=== PATIENT | female | born 1930 | race Caucasian/White ===

== ENCOUNTER 2017-10-07 19:33 | Inpatient (IN) | payer OTHER ==
--- NOTE | 2017-10-07 19:42 | PDOC ---
Rapid Medical Evaluation Chief Complaint: Pain, Acute Time Seen by Provider: 10/07/17 19:37 Medical Evaluation: Allergies Allergy/AdvReac Type Severity Reaction Status Date / Time Penicillins Allergy Verified 01/29/13 14:04 10/07/17 19:37 S: c/o abdominal pain since last night. c/o constipated x 2 days. patient took 2 gasx since have been having diarrhea and lower abdominal pain. denies fever/ chills. history of abdominal surgeries. patient reports history of abdominal aortic aneurysm. PMD: Dr. Moser O: patient ox3. + mid and lower abdominal tenderness P; cbc, cmp, mag, UA, UCX, RKG Patient to the ER for further management of care.
[2017-10-07] MEDS ORDERED: SODIUM CHLORIDE 1,000 ML IV SCH (20:00)
[2017-10-07] MEDS ORDERED: ACETAMINOPHEN 1000 MG/100 ML VIAL (NON FORMULARY) IVPB ONE (20:01)
--- NOTE | 2017-10-07 20:03 | PDOC ---
History of Present Illness - History of Present Illness Initial Comments: 10/07/17 21:07 The patient is an 87 year old female with a history of dementia, HTN, Chronic back pain who initially presents for evaluation of acute worsening of the patient's back pain. On presentation to the ED, the patient was conversing normally with EMS and nursing staff. Upon my evaluation of the patient, the patient developed expressive aphasia speaking clearly with inappropriate words unable to identify family and objects intermittently following commands without focal neurological findings. The patient's family reports that the patient has never exhibited symptoms like this in the past and is normally very functional and lives on her own. A code redman was called and the patient was sent over to CT scan. <Felix Andrews - Last Filed: 10/07/17 21:15> <Epi Contreras - Last Filed: 10/07/17 22:43> - General Chief Complaint: Back Pain Stated Complaint: BACK PAIN Time Seen by Provider: 10/07/17 19:37 NIH Stroke Scale - Last Known Well Date/Time & Onset Date Last Known Well: 10/07/17 Time Last Known Well: 19:45 - Initial Evaluation Level of consciousness: Alert Ask patient the month and their age: Both incorrect Ask patient to open & close eyes; make fist and let go: Both incorrect Best gaze (horizontal eye movement): Normal Visual field testing: No visual field loss Facial paresis (Show teeth/raise eyebrows/close eyes tight): Normal symmetrical movement Motor Function: Left Arm: Normal Motor Function: Right Arm: Normal (extends arm 90 (or 45) degrees for 10 seconds without drift Motor Function: Left Leg: Normal (extends leg 30 degrees for 5 seconds without drift) Motor Function: Right Leg: Normal (extends leg 30 degrees for 5 seconds without drift) Limb Ataxia: Untestable (Joint fused or limb amputated), explain: (Pain to the Lower back. Patient unable to follow command) Sensory(Use pinprick test arms,legs,trunk,face/side to side): Normal Best language (Describe picture, name items, read sentences): Severe aphasia Dysarthria (read several words): Mild to moderate slurring of words Extinction and Inattention: No abnormality - Total Score NIH Stroke Scale Score: 7 <Felix Andrews - Last Filed: 10/07/17 21:15> Past History - Past Medical History HTN: Yes Thyroid Disease: Yes - Suicide/Smoking/Psychosocial Hx Smoking Status: No Smoking History: Never smoked Have you smoked in the past 12 months: No Number of Cigarettes Smoked Daily: 0 Information on smoking cessation initiated: No Hx Alcohol Use: No Drug/Substance Use Hx: No Substance Use Type: Alcohol Hx Substance Use Treatment: No <Felix Andrews - Last Filed: 10/07/17 21:15> <Epi Contreras - Last Filed: 10/07/17 22:43> - Past Medical History Allergies/Adverse Reactions: Allergies Allergy/AdvReac Type Severity Reaction Status Date / Time Penicillins Allergy Verified 10/07/17 21:04 Home Medications: Ambulatory Orders Amlodipine Besylate [Norvasc -] 2.5 mg PO DAILY #0 tablet 05/15/12 Aspirin [ASA -] 81 mg PO DAILY #0 tab.chew 05/15/12 Biotin 1 mg PO DAILY #0 tablet 05/15/12 Cholecalciferol (Vitamin D3) [Vitamin D3] 400 unit PO DAILY #0 capsule 05/15/12 Levothyroxine [Synthroid -] 88 mcg PO DAILY@0700 #0 tablet 05/15/12 Multivitamin [Multivitamins] 1 each PO DAILY #0 capsule 05/15/12 Ranitidine [Zantac -] 150 mg PO HS #0 tablet 05/15/12 Review of Systems - Review of Systems Able to Perform ROS?: No (Aphasia) <Felix Andrews - Last Filed: 10/07/17 21:15> *Physical Exam - Vital Signs Last Vital Signs Temp Pulse Resp BP Pulse Ox 98.9 F 64 18 212/98 95 10/07/17 19:51 10/07/17 19:51 10/07/17 19:51 10/07/17 19:51 10/07/17 19:51 - Physical Exam Comments: 10/07/17 21:15 General Appearance: Nourished. In Severe Apparent Distress HEENT: EOMI, SHEFALI. No Pharyngeal Erythema, Tonsillar Exudate, Tonsillar Erythema Neck: No Cervical Lymphadenopathy Respiratory/Chest: Lungs Clear, Normal Breath Sounds. No Crackles, Rales, Rhonchi, Wheezing Cardiovascular: Regular Rhythm, Regular Rate. No Murmur, Gallops, Rubs Gastrointestinal/Abdominal: Normal Bowel Sounds, Soft. No Guarding, Rebound, Tenderness Musculoskeletal: Severe Tenderness to palpation along the lumbar spine. No CVA Tenderness Extremity: Normal Capillary Refill Integumentary: Normal Color, Dry, Warm Neurologic: litigation partner II-XII NML intact, Alert, Expressive Aphasia noted on exam with the patient speaking non-sensecally, Motor Strength 5/5, Moving all four extremities equally. Following commands intermittently. <Felix Andrews - Last Filed: 10/07/17 21:15> - Vital Signs Last Vital Signs Temp Pulse Resp BP Pulse Ox 98.5 F 58 L 17 164/85 99 10/07/17 21:09 10/07/17 21:09 10/07/17 21:09 10/07/17 21:09 10/07/17 21:09 <Epi Contreras - Last Filed: 10/07/17 22:43> Heart Score/ECG Review #1 ECG reviewed & interpreted by me at: 21:25 (Sinus Tachycardia) General ECG Interpretation: Sinus Rhythm, Normal Intervals, No acute ischemic changes <Felix Andrews - Last Filed: 10/07/17 21:15> ED Treatment Course - LABORATORY CBC & Chemistry Diagram: 10/07/17 21:03 10/07/17 20:00 - RADIOLOGY Radiology Studies Ordered: Category Date Time Status HEAD CT (STROKE) [CT] Stat CT Scan 10/07/17 19:59 Ordered <Felix Andrews - Last Filed: 10/07/17 21:15> - LABORATORY CBC & Chemistry Diagram: 10/07/17 21:03 10/07/17 20:00 - ADDITIONAL ORDERS Additional order review: Laboratory Results 10/07/17 10/07/17 10/07/17 22:00 21:06 20:12 PT with INR INR Sodium Potassium Chloride Carbon Dioxide Anion Gap BUN Creatinine Creat Clearance w eGFR Random Glucose Calcium Total Bilirubin AST ALT Alkaline Phosphatase Creatine Kinase 158 Creatine Kinase Index 0.9 CK-MB (CK-2) 1.440 Troponin I 0.02 Total Protein Albumin Triglycerides 132 Cholesterol 189 Total LDL Cholesterol 138 H HDL Cholesterol 39 L Lipase Urine Color Ltyellow Urine Appearance Clear Urine pH 7.0 D Ur Specific [place] 1.008 Urine Protein Negative Urine Glucose (UA) Negative Urine Ketones Negative Urine Blood Negative Urine Nitrite Negative Urine Bilirubin Negative Urine Urobilinogen Negative Ur Leukocyte Esterase Negative Blood Type O POSITIVE Antibody Screen Negative 10/07/17 10/07/17 10/07/17 20:12 20:00 20:00 PT with INR 11.40 INR 1.01 Sodium 141 Potassium 4.4 Chloride 109 H Carbon Dioxide 24 Anion Gap 8 BUN 24 H Creatinine 1.7 H Creat Clearance w eGFR 28.56 Random Glucose 76 Calcium 9.0 Total Bilirubin 0.6 AST 28 ALT 18 Alkaline Phosphatase 82 Creatine Kinase Creatine Kinase Index CK-MB (CK-2) Troponin I 0.02 Total Protein 8.2 Albumin 4.1 Triglycerides Cholesterol Total LDL Cholesterol HDL Cholesterol Lipase 155 Urine Color Urine Appearance Urine pH Ur Specific [place] Urine Protein Urine Glucose (UA) Urine Ketones Urine Blood Urine Nitrite Urine Bilirubin Urine Urobilinogen Ur Leukocyte Esterase Blood Type Antibody Screen 10/07/17 21:03 RBC 4.57 MCV 92.3 MCHC 33.3 RDW 15.5 MPV 9.0 D Neutrophils % 59.3 Lymphocytes % 30.3 D Monocytes % 6.7 Eosinophils % 2.7 Basophils % 1.0 - RADIOLOGY Radiology Studies Ordered: Category Date Time Status CHEST X-RAY PORTABLE* [RAD] Stat Radiology 10/07/17 22:20 Ordered - Medications Given in the ED: ED Medications Discontinued Medications Generic Name Dose Route Start Last Admin Trade Name Freq PRN Reason Stop Dose Admin Acetaminophen 1,000 mg 10/07/17 20:01 10/07/17 20:54 Ofirmev Injection - IVPB 10/07/17 20:02 1,000 mg ONCE ONE Administration <Epi Contreras - Last Filed: 10/07/17 22:43> Medical Decision Making - Critical Care Time Total Critical Care Time (minutes): 90 Critical Care Statement: The care of this patient involved high complexity decision making to prevent further life threatening deterioration of the patient 's condition and/or to evaluate & treat vital organ system(s) failure or risk of failure. - Medical Decision Making 10/07/17 20:10 The patient is an 87 year old female with a history of dementia, HTN, Chronic back pain who initially presents for evaluation of acute worsening of the patient's back pain. Given the patient's acute expressive aphasia on presentation, we will call a code redman and obtain a stat head CT in addition to cbc, cmp, troponin, coags, type and screen, ekg to evaluate further for possible etiologies. We discussed the case with Dr. Ayoub the patient's neurologist who states that he believes that due to the patient not having any localizing neurological findings that the patient's expressive aphasia is related to the patient's dementia and pain and thus does not qualify for tPa at this time. 10/07/17 20:[address] demonstrates an acute large hemorrhagic bleed as read by our radiologist. The patient appears minimally less responsive and is still responding to voice although inappropriately as with prior exam. The patient's daughter, Clari Renteria, who is present is the patient's appointed healthcare proxy and informs us that the patient is a DNR. The patient's healthcare proxy does not believe the patient would want to be on the ventilator and would not like us to intubate the patient. Per the healthcare proxy's wishes, we will not currently intubate the patient. We will continue to treat the patient by raising the head of the bed and placing the patient on a non-rebreather. We will discuss the case with neurosurgery for consultation. 10/07/17 21:26 We discussed the case with Dr. Pablo with neurosurgery who has reviewed the images and does not believe the patient to be a surgical candidate at this time given the location of the patient's hemorrhage and size. He states that the patient's brain atrophy is allowing the brain to compensate for the localized edema and hemorrhage. He recommends medical management at this time and notes that he does not believe surgery would change the patient's outcome. We will medically manage the patient and control her blood pressure with a nicardipine drip in the meantime. We discussed the case with the ICU team who accepted the patient to ICU. We will continue to closely monitor and reassess while here in the ED. <Felix Andrews - Last Filed: 10/07/17 21:15> *DC/Admit/Observation/Transfer <Felix Andrews - Last Filed: 10/07/17 21:15> - Discharge Dispostion Admit: Yes <Epi Contreras - Last Filed: 10/07/17 22:43> Diagnosis at time of Disposition: Intracerebral hemorrhage Qualifiers: Intracerebral hemorrhage etiology: nontraumatic Cerebral hemorrhage location: unspecified cerebral location Laterality: left Qualified Code(s): I61.9 - Nontraumatic intracerebral hemorrhage, unspecified Low back pain Qualifiers: Chronicity: unspecified Back pain laterality: unspecified Sciatica presence: unspecified whether sciatica present Qualified Code(s): M54.5 - Low back pain - Discharge Dispostion Condition at time of disposition: Critical - Referrals Referrals: ON STAFF,NOT [Non Staff, Medical] - - Patient Instructions - Post Discharge Activity
[2017-10-07] MEDS ORDERED: RAPID SEQUENCE INTUBATION KIT NR ONE (20:32)
[2017-10-07 20:48] LABS: INR 1.01 (0.82-1.09); PROTHROMBIN TIME (PATIENT) 11.4 SEC (9.7-13.0)
--- NOTE | 2017-10-07 20:52 | PDOC ---
Attending Attestation - Resident Resident Name: Felix Andrews - ED Attending Attestation I have performed the following: I have examined & evaluated the patient, The case was reviewed & discussed with the resident, I agree w/resident's findings & plan, Exceptions are as noted - Physicial Exam PE: 10/07/17 22:24 Patient seen and evaluated immediately upon arrival. This physical exam is being recorded post admission. Awake and alert, screaming incoherently, follows commands intermittently; patient hypertensive on initial evaluation; Normocephalic, atraumatic PERRLA, EOMI No JVD; no carotid bruits CTA RRR Soft, nondistended, nontender No lower extremity edema bilaterally No midline TLS spine tenderness/deformity Full passive range of motion in all 4 extremities Awake and alert, Moving all extremities symmetrically, no pronation drift; speech is incoherent - Critical Care Time Total Critical Care Time: 55 Critical Care Statement: The care of this patient involved high complexity decision making to prevent further life threatening deterioration of the patient 's condition and/or to evaluate & treat vital organ system(s) failure or risk of failure. - Medical Decision Making 10/07/17 20:47 87-year-old female with history of dementia, chronic back pain was brought in by EMS or back pain and became acutely agitated with expressive aphasia without any other localizing signs. Stat head CT was obtained which showed a 4 x 2.5 x 2.3 cm acute left temporal lobe hemorrhage with associated mild. Hemorrhagic edema and mild contralateral midline displacement. On reassessment, patient is lethargic but easily arousable to verbal stimuli, with incoherent speech, minimal movement of the right lower extremity and no spontaneous movement of the right upper extremity. Patient's daughter who is her healthcare proxy has been informed of the findings. She informs me the patient is DNR and she does not wish the patient to be intubated given her advanced age and dementia. I will discuss the patient's presentation with neurosurgery and then will advise the family of the options available. At this time, patient is placed on supplemental O2. Will control blood pressure with IV antihypertensives. Will reassess. 10/07/17 22:[address] Cueva of neurosurgery. He advises that current presentation is nonsurgical at this time. Medical management is recommended. Will initiate nicardipine drip for blood pressure control. Will admit to ICU for further management. 10/07/17 22:23 Patient is a DNR/DNI. Patient's daughter who is healthcare proxy signed a DNR/ DNR form in the ED. <Epi Contreras - Last Filed: 10/07/17 23:01> - HPI HPI: 10/07/17 22:28 87 year old female with past medical history of dementia, HTN, and Chronic back pain via EMS with back pain. Upon arrival to the ED, the patient's been experiencing difficulty putting words together and speaking incoherently. - Medical Decision Making 10/07/17 22:[address] Ayoub of neurology at 8:04 PM. Case discusses with Dr. Pablo of Neurosurgery at 8:50 PM. Case discussed with Dr. Arce, the PCP of the patient at 9:19 PM Case discussed with Dr. Ayoub of neurology at 11:22 PM 10/07/17 23:39 <Anna Figueroa - Last Filed: 10/07/17 23:40> NIH Stroke Scale - Last Known Well Date/Time & Onset Date Last Known Well: 10/07/17 Time Last Known Well: 07:45 - Initial Evaluation Level of consciousness: Alert Ask patient the month and their age: Both incorrect Ask patient to open & close eyes; make fist and let go: Obeys one correctly Best gaze (horizontal eye movement): Normal Visual field testing: No visual field loss Facial paresis (Show teeth/raise eyebrows/close eyes tight): Normal symmetrical movement Motor Function: Left Arm: Normal Motor Function: Right Arm: Normal (extends arm 90 (or 45) degrees for 10 seconds without drift Motor Function: Left Leg: Normal (extends leg 30 degrees for 5 seconds without drift) Motor Function: Right Leg: Normal (extends leg 30 degrees for 5 seconds without drift) Limb Ataxia: No ataxia Sensory(Use pinprick test arms,legs,trunk,face/side to side): Normal Best language (Describe picture, name items, read sentences): Severe aphasia Dysarthria (read several words): Mild to moderate slurring of words Extinction and Inattention: No abnormality - Total Score NIH Stroke Scale Score: 6 <Epi Contreras - Last Filed: 10/07/17 23:01>
[2017-10-07 21:01] LABS: ALBUMIN 4.1 g/dl (3.4-5.0); ANION GAP 8 (8-16); BLOOD UREA NITROGEN 24 mg/dL (7-18); CHLORIDE 109 mmol/L (98-107); CO2 24 mmol/L (21-32); CREATININE 1.7 mg/dL (0.55-1.02); GLUCOSE,RANDOM 76 mg/dL (74-106); LIPASE 155 U/L (73-393); POTASSIUM 4.4 mmol/L (3.5-5.1); SGOT/AST 28 U/L (15-37); SGPT/ALT 18 U/L (12-78); SODIUM 141 mmol/L (136-145)
[2017-10-07 21:03] LABS: ALK PHOS 82 U/L (45-117); BILIRUBIN,TOTAL 0.6 mg/dL (0.2-1.0); TOT PROT 8.2 g/dl (6.4-8.2)
[2017-10-07] MEDS ORDERED: NICARDIPINE 25 MG in DEXTROSE 5%-WATER - 240 ML IVPB SCH (21:15)
[2017-10-07 21:16] LABS: EOS % 2.7 % (0-4.5); HEMATOCRIT 42.2 % (32.4-45.2); HEMOGLOBIN 14.1 GM/dL (10.7-15.3); LYMPH % 30.3 % (8-40); MCH 30.8 pg (25.7-33.7); MCHC 33.3 g/dl (32.0-36.0); MEAN CELL VOLUME 92.3 fl (80-96); MONO % 6.7 % (3.8-10.2); NEUT % 59.3 % (42.8-82.8); PLATELET COUNT 167 K/MM3 (134-434); RBC 4.57 M/mm3 (3.60-5.2); RDW 15.5 % (11.6-15.6); WHITE BLOOD COUNT 4.9 K/mm3 (4.0-10.0)
[2017-10-07 21:20] LABS: URINE APPEARANCE CLEAR; URINE BILIRUBIN NEGATIVE (<2.0 mg/dL); URINE COLOR LTYELLOW; URINE GLUCOSE (UA) NEGATIVE (NEGATIVE); URINE KETONE NEGATIVE (NEGATIVE); URINE LEUK ESTERASE NEGATIVE (NEGATIVE); URINE NITRITE NEGATIVE (NEGATIVE); URINE PROTEIN NEGATIVE (NEGATIVE); URINE UROBILINOGEN NEGATIVE mg/dL (0.2-1.0)
[2017-10-07] MEDS ORDERED: ACETAMINOPHEN 1000 MG/100 ML VIAL (NON FORMULARY) IVPB PRN (23:34)
[2017-10-07] MEDS: NICARDIPINE 25 MG in DEXTROSE 5%-WATER - 240 ML IVPB SCH (23:36)
--- NOTE | 2017-10-07 23:45 | HP ---
CHIEF COMPLAINT: Back Pain PCP: Dr Arce HISTORY OF PRESENT ILLNESS: 87yo F with a PMHx of Dementia and chronic back pain who was originally brought in by EMS due to severe back pain. While being transferred from the stretcher to the ER bed, the patient started screaming in excruciating pain, became tachy and very hypertensive (212/98), and suddenly sustained expressive aphasia. She started speaking nonsensically, appeared confused, and had decreased movement to her R upper and lower extremities. Valencia Escobar was called and Head CT showed 4x2cm L temporal hemorrhage w/ mild edema. She was started on Cardene drip. Neurosurgery Dr Scott was called, who stated that the location of the bleed is risky, makes it nonsurgical ulises. HCP signed DNR/DNI in ED. On our exam, the BP dropped to 112/80s, so Cardene drip was temporarily held. Recent Travel: Family denies PAST MEDICAL HISTORY: Alzheimers dementia, Chronic back pain (?unclear reason), Hypothyroidism PAST SURGICAL HISTORY: Hysterectomy Social History: Family denies toxic habits Allergies Penicillins Allergy (Verified 10/07/17 21:04) HOME MEDICATIONS: Home Medications Medication Instructions Recorded Amlodipine Besylate [Norvasc -] 2.5 mg PO DAILY #0 tablet 05/15/12 Aspirin [ASA -] 81 mg PO DAILY #0 tab.chew 05/15/12 Biotin 1 mg PO DAILY #0 tablet 05/15/12 Cholecalciferol (Vitamin D3) 400 unit PO DAILY #0 capsule 05/15/12 [Vitamin D3] Levothyroxine [Synthroid -] 88 mcg PO DAILY@0700 #0 tablet 05/15/12 Multivitamin [Multivitamins] 1 each PO DAILY #0 capsule 05/15/12 Ranitidine [Zantac -] 150 mg PO HS #0 tablet 05/15/12 REVIEW OF SYSTEMS Unable to obtain PHYSICAL EXAMINATION Vital Signs Period Temp Pulse Resp BP Sys/Donaldson Pulse Ox Last 24 Hr 98.5 F-98.9 F 58-64 17-18 123-212/62-98 95-99 GEN: No acute distress. Not ill appearing. HEENT: Pupils miotic, reactive, no JVD CV: S1, S2, PVCs, at times w/ irregular beats, 3/6 systolic murrmur in RUSB LUNG: Anterior lung exam grossly clear ABD: Soft, NT, ND, normoactive BS MSK: Moves symmetrically, difficutl to assess strength, able to lift both hands against gravity. Unable to assess back due to pain NEURO: Opens eyes to verbal stimuli Uses inappropriate words followed by inappropriate full sentences Does not follow commands Difficult to assess CN, msk, or sensation due to noncoop Reflexes 2+ in BL lower and upper ext Active Medications Acetaminophen (Ofirmev Injection -) 1,000 mg IVPB Q6H PRN PRN Reason: PAIN Chlorhexidine Gluconate (Hibiclens For Decolonization -) 1 applic TP HS JOEL Nicardipine HCl 25 mg/ (Dextrose) 250 mls @ 50 mls/hr IVPB TITR JOEL; 5 MG/HR PRN Reason: Protocol Last Admin: 10/07/17 23:36 Dose: Not Given Mupirocin (Bactroban Ointment (For Decolonization) -) 1 applic NS BID JOEL Stop: 10/13/17 09:59 ASSESSMENT/PLAN: 87yo F with a PMHx of Dementia and chronic back pain who was originally brought in by EMS due to severe back pain, became hypertensive and sustained a L temporal ICH # L temporal Intracranial Hemorrhage -- Likely sustained from severely elevated BP from acute back pain. BP rapidly lowered w/ Cardene drip. Keep SBP 140s-160s. BP checks Q15min. No surgical intervention ulises as per neurosurg. Repeat CT scan in 12 hrs. Elevate HOB. NC 3L. NPO. Neuro checks Q1H. Fall precautions. GCS is currently 10, so no need for ICP monitoring ulises. Hold any AC/anti-pLT. # Acute Back Pain -- Compression fracture vs Herniated disc vs ?Fall. Patient lives by herself, family unsure of circumstances behind acute episode. No malignancy history to suspect spinal met. CT Lumbar spine when pt is stable. Pain mgmt w/ IV Tylenol. Avoid opiates for now # MAU -- Cr elevated compared to prior. Unclear why. Will get Ulytes and UCr. # Dementia -- Hold PO meds ulises # Hypothyroidism -- Hold Synthroid ulises # FEN/PPx -- No IVF for now, NPO, SCDs, avoid pharm AC # Dispo -- Admit to ICU Case d/w Dr Rosado & Dr Rowena Zelaya MD - [id number] [employer] Machine [employer]er Visit type - Emergency Visit Emergency Visit: Yes ED Registration Date: 10/07/17 Care time: The patient presented to the Emergency Department on the above date and was hospitalized for further evaluation of their emergent condition. - New Patient This patient is new to me today: Yes Date on this admission: 10/12/17 - Critical Care Critical Care patient: No Hospitalist Screening - Colonoscopy Questionnaire Colonoscopy Questionnaire: Colonoscopy Questionnaire - Patient: 50 - 75 years old and never had a screening colonoscopy: Unknown History of colon or rectal polyps, or CA: Unknown History of IBD, Crohn's disease or UC: Unknown History of abdominal radiation therapy as a child: Unknown - Relative: 1 with colon or rectal CA, or polyps at age 60 or younger: Unknown Colon or rectal CA diagnosed at age 45 or younger: Unknown Multiple relatives with colon or rectal CA: Unknown - Outcome: Screening Result: Negative Screen
--- NOTE | 2017-10-07 23:48 | PN ---
Teaching Attending Note Name of Resident: Ignacia Zelaya ATTENDING PHYSICIAN STATEMENT I saw and evaluated the patient. Chart, data, imaging reviewed. I reviewed the resident's note and discussed the case with the resident. I agree with the resident's findings and plan as documented. CT was obtained which showed a 4 x 2.5 x 2.3 cm acute left temporal lobe hemorrhage with associated mild SUBJECTIVE: 87yo F with a PMHx of Dementia and chronic back pain who was brought in by EMS due to severe back pain while she was walking this evening. When patient was being moved from [facility] in ER earlier, she developed expressive aphasia, code redman was called. Head CT showed 4 x 2.5 x 2.3 cm acute left temporal lobe hemorrhage with associated w/ mild edema. BP was elevated at 212/98, right upper and lower extremity weakness was noted. Neurosurgery income tax consultant was contacted - Dr. Cueva- who recommended no surgical intervention and admission to ICU. Pt was started on Cardizem drip and BP improved. Patient's daughter- Clari is health care proxy and she wishes DNR/DNI. Documents were signed. Patient is protecting her airway currently. OBJECTIVE: Last Vital Signs Temp Pulse Resp BP Pulse Ox 98.5 F 58 L 18 123/62 98 10/07/17 21:09 10/07/17 23:30 10/07/17 23:30 10/07/17 23:30 10/07/17 23:30 General- awake, alert, right sided hemineglect Neck -no masses noted cv-s1+s2+ rrr chest- b/l air entry abdomen- soft, nt, BS+ Neuro- expressive aphasia pupils miotic b/l, does not follow commands Abnormal Lab Results 10/07/17 10/07/17 20:00 20:12 Chloride 109 H BUN 24 H Creatinine 1.7 H Total LDL Cholesterol 138 H HDL Cholesterol [address] reviewed- 4 x 2.5 x 2.3 cm acute left temporal lobe hemorrhage chest x ray -reviewed ASSESSMENT AND PLAN: #Acute left 4x2cm L temporal hemorrhage likely secondary to severe hypertension which was probably caused by severe back pain. Patient is DNR/DNI. -admit to ICU -NPO -elevate head of bead 30 degrees -neurosurgery consult -neuro checks q 1 hour -VS checks q 1 hour -will repeat head CT in 12 hours from first one -avoid antiplatelet agents and heparin -bed rest -fall precautions #Severe hypertension- Systolic blood pressure found to be 123/62mmHg after cardizem drip. -hold cardizem drip for now -restart drip if systolic blood pressure increases >160 #Severe back pain - unable to assess. Possibly vertebral compression fracture vs herniated disc given acuity and severity of pain. Unable to perform imaging of back at this time given patient's acute intracranial bleed. -avoid IV opiates or NSAIDS -IV tylenol for pain control -pain management consult #DVT prophylaxis -heparin sc
[2017-10-08] MEDS ORDERED: SODIUM CHLORIDE 500 ML IV STA (00:39)
[2017-10-08] MEDS: NICARDIPINE 25 MG in DEXTROSE 5%-WATER - 240 ML IVPB SCH (01:00)
--- NOTE | 2017-10-08 01:18 | CONSULT ---
Consult Consult Specialty:: Pulm/CCM Reason for Consultation:: Acute intracranial bleed - History of Present Illness History of Present Illness: 87yow with PMHx of mild dementia and chronic back pain who lives independently as per family who called EMS for acute severe back pain( etiology unclear possible fall or herniated disc). In the ED when being moved had acute spike in BP in setting of back pain. Pt noted to have expressive aphasia. Code redman was called. Pt noted to have rt sided weakness. CT head showed a 4 x 2.5 x 2.3 cm acute left temporal lobe hemorrhage with associated w/ mild edema. Neuro surgery was consulted. No surgical intervention recommended at this time . She was started on cardene drip for BP management. Patient's daughter- Clari is health care proxy and she wishes DNR/DNI. She was transferred to ICU for further management. In the ICU rec'd awake and alert, speech garbled, not following commands, HR 64 , BP 170/70, RR 16, O2 sat 100% on 2L NC. Restarted cardene drip for SBP goal 140-160. 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 Cardio/Vascular: Yes: HTN Endocrine: Yes: Hypothyroidism - Alcohol/Substance Use Hx Alcohol Use: No - Smoking History Smoking history: Never smoked Have you smoked in the past 12 months: No Aproximately how many cigarettes per day: 0 Home Medications - Allergies Allergies/Adverse Reactions: Allergies Allergy/AdvReac Type Severity Reaction Status Date / Time Penicillins Allergy Verified 10/07/17 21:04 - Home Medications Home Medications: Ambulatory Orders Amlodipine Besylate [Norvasc -] 2.5 mg PO DAILY #0 tablet 05/15/12 Aspirin [ASA -] 81 mg PO DAILY #0 tab.chew 05/15/12 Biotin 1 mg PO DAILY #0 tablet 05/15/12 Cholecalciferol (Vitamin D3) [Vitamin D3] 400 unit PO DAILY #0 capsule 05/15/12 Levothyroxine [Synthroid -] 88 mcg PO DAILY@0700 #0 tablet 05/15/12 Multivitamin [Multivitamins] 1 each PO DAILY #0 capsule 05/15/12 Ranitidine [Zantac -] 150 mg PO HS #0 tablet 05/15/12 Family Disease History - Family Disease History Family History: Unable to Obtain Review of Systems Unable to obtain ROS, reason: Aphasia Physical Exam Vital Signs: Vital Signs Temperature 98.5 F 10/07/17 21:09 Pulse Rate 56 L 10/08/17 00:19 Respiratory Rate 20 10/08/17 00:19 Blood Pressure 122/64 10/08/17 00:19 O2 Sat by Pulse Oximetry (%) 99 10/08/17 00:19 Intake & Output 10/05/17 10/06/17 10/07/17 10/08/17 23:59 23:59 23:59 23:59 Weight 95.254 kg Constitutional: Yes: Well Nourished, No Distress Eyes: Yes: Conjunctiva Clear, PERRL HENT: Yes: Atraumatic, Normocephalic Neck: Yes: Supple, Trachea Midline Cardiovascular: Yes: Regular Rate and Rhythm, Murmur, S1, S2 Respiratory: Yes: CTA Bilaterally Gastrointestinal: Yes: Normal Bowel Sounds, Soft Musculoskeletal: Yes: Back Pain Extremities: Yes: WNL Edema: No Integumentary: Yes: WNL Neurological: Yes: Aphasia ...Motor Strength: RUE, RLE Psychiatric: Yes: Other (unable to follow commands) Labs: CBC, BMP 10/07/17 21:03 10/07/17 20:00 CBC,CMP WBC 4.9 K/mm3 (4.0-10.0) 10/07/17 21:03 RBC 4.57 M/mm3 (3.60-5.2) 10/07/17 21:03 Hgb 14.1 GM/dL (10.7-15.3) 10/07/17 21:03 Hct 42.2 % (32.4-45.2) 10/07/17 21:03 MCV 92.3 fl (80-96) 10/07/17 21:03 MCH 30.8 pg (25.7-33.7) 10/07/17 21:03 MCHC 33.3 g/dl (32.0-36.0) 10/07/17 21:03 RDW 15.5 % (11.6-15.6) 10/07/17 21:03 Plt Count 167 K/MM3 (134-434) D 10/07/17 21:03 MPV 9.0 fl (7.5-11.1) D 10/07/17 21:03 Neutrophils % 59.3 % (42.8-82.8) 10/07/17 21:03 Lymphocytes % 30.3 % (8-40) D 10/07/17 21:03 Monocytes % 6.7 % (3.8-10.2) 10/07/17 21:03 Eosinophils % 2.7 % (0-4.5) 10/07/17 21:03 Basophils % 1.0 % (0-2.0) 10/07/17 21:03 Sodium 141 mmol/L (136-145) 10/07/17 20:00 Potassium 4.4 mmol/L (3.5-5.1) 10/07/17 20:00 Chloride 109 mmol/L (98-107) H 10/07/17 20:00 Carbon Dioxide 24 mmol/L (21-32) 10/07/17 20:00 Anion Gap 8 (8-16) 10/07/17 20:00 BUN 24 mg/dL (7-18) H 10/07/17 20:00 Creatinine 1.7 mg/dL (0.55-1.02) H 10/07/17 20:00 Creat Clearance w eGFR 28.56 (>60) 10/07/17 20:00 Random Glucose 76 mg/dL (74-106) 10/07/17 20:00 Calcium 9.0 mg/dL (8.5-10.1) 10/07/17 20:00 Total Bilirubin 0.6 mg/dL (0.2-1.0) 10/07/17 20:00 AST 28 U/L (15-37) 10/07/17 20:00 ALT 18 U/L (12-78) 10/07/17 20:00 Alkaline Phosphatase 82 U/L (45-117) 10/07/17 20:00 Creatine Kinase 158 IU/L (26-192) 10/07/17 20:12 Creatine Kinase Index 0.9 % (0.0-5.0) 10/07/17 20:12 CK-MB (CK-2) 1.440 ng/mL (0.5-3.6) 10/07/17 20:12 Troponin I 0.02 ng/ml (0.00-0.05) 10/07/17 20:12 Total Protein 8.2 g/dl (6.4-8.2) 10/07/17 20:00 Albumin 4.1 g/dl (3.4-5.0) 10/07/17 20:00 Triglycerides 132 mg/dL (35-160) 10/07/17 20:12 Cholesterol 189 mg/dL (50-200) 10/07/17 20:12 Total LDL Cholesterol 138 mg/dL (5-100) H 10/07/17 20:12 HDL Cholesterol 39 mg/dL (40-60) L 10/07/17 20:12 Lipase 155 U/L (73-393) 10/07/17 20:00 Imaging - Results Chest X-ray: Report Reviewed Cat Scan: Report Reviewed Problem List - Problems (1) Aphasia Code(s): R47.01 - APHASIA (2) HTN (hypertension) Code(s): I10 - ESSENTIAL (PRIMARY) HYPERTENSION (3) Altered mental status Code(s): R41.82 - ALTERED MENTAL STATUS, UNSPECIFIED (4) Intracerebral hemorrhage Code(s): I61.9 - NONTRAUMATIC INTRACEREBRAL HEMORRHAGE, UNSPECIFIED Qualifiers: Intracerebral hemorrhage etiology: nontraumatic Cerebral hemorrhage location: unspecified cerebral location Laterality: left Qualified Code(s): I61.9 - Nontraumatic intracerebral hemorrhage, unspecified (5) Low back pain Code(s): M54.5 - LOW BACK PAIN Qualifiers: Chronicity: unspecified Back pain laterality: unspecified Sciatica presence: unspecified whether sciatica present Qualified Code(s): M54.5 - Low back pain Assessment/Plan 87yow with PMHx of HTN, mild dementia now with acute left temporal bleed in the setting hypertensive emergency d/t pain c/b aphasia and rt side weakness. Plan: -neurosurgery following -Plan for repeat CT head in am -Spinal imaging when stable -Nicardipine drip for SBP goal 140-160 -HOB elevated -q1h neuro check -Hold ASA and heparin -tylenol IV for back pain prn; limit sedatives -protecting air way; NC O2 for O2 sat>92% -NPO for now -RUs MARCIANO Serrano CC time 35mins
[2017-10-08] MEDS ORDERED: ACETAMINOPHEN 1000 MG/100 ML VIAL (NON FORMULARY) IVPB PRN ×2 (01:50→21:00)
[2017-10-08 06:32] LABS: HEMATOCRIT 39.4 % (32.4-45.2); HEMOGLOBIN 13.5 GM/dL (10.7-15.3); MCH 31.4 pg (25.7-33.7); MCHC 34.2 g/dl (32.0-36.0); MEAN CELL VOLUME 91.6 fl (80-96); MEAN PLT VOLUME 9.1 fl (7.5-11.1); PLATELET COUNT 170 K/MM3 (134-434); RDW 15.2 % (11.6-15.6); WHITE BLOOD COUNT 4.8 K/mm3 (4.0-10.0)
[2017-10-08 06:51] LABS: INR 1.04 (0.82-1.09); PROTHROMBIN TIME (PATIENT) 11.8 SEC (9.7-13.0)
[2017-10-08 07:04] LABS: ALBUMIN 3.7 g/dl (3.4-5.0); ALK PHOS 76 U/L (45-117); ANION GAP 11 (8-16); BILIRUBIN,TOTAL 0.6 mg/dL (0.2-1.0); BLOOD UREA NITROGEN 21 mg/dL (7-18); CALCIUM 8.9 mg/dL (8.5-10.1); CHLORIDE 108 mmol/L (98-107); CO2 22 mmol/L (21-32); CREATININE 1.4 mg/dL (0.55-1.02); GLUCOSE,RANDOM 92 mg/dL (74-106); MAGNESIUM 2.2 mg/dL (1.8-2.4); PHOSPHOROUS 3.3 mg/dL (2.5-4.9); POTASSIUM 3.9 mmol/L (3.5-5.1); SGOT/AST 24 U/L (15-37); SGPT/ALT 17 U/L (12-78); SODIUM 141 mmol/L (136-145); TOT PROT 7.6 g/dl (6.4-8.2)
--- NOTE | 2017-10-08 07:54 | CONSULT ---
Consult - text type - Consultation Consultation Note: NEUROSURGERY CONSULTATION Violetta Marin is an 87 year old female with a history of Dementia and back pain who developed aphasia in [facility] ER where she was being evaluated for progression of her back pain. Patient has advanced directive for DNR/DNI, however, I was informed that the family would entertain surgical intervention if required. Patient underwent noncontrast Head CT which demonstrated a 4x4 cm Posterior Left Temporal ICH. There is no obvious Subarachnoid hemorrhage. On exam, patient is awake and alert, however, she appears to manifest a receptive aphasia. There seems to be a Right superior quadrant visual field cut , however, examination is very difficult due to limited exam (dementia, aphasia , prior hearing impairment). Patient does NOT have enlarged pupil or diminished level of arousal which may be associated with a large clot requiring removal. Several other features suggest against surgical intervention: Patient appears to be tolerating mass, this may represent a venous infarct (vein of Amber) which would result in Neurological impairment if it were to be removed, there is a slight chance that this could be an arterial hemorrhage associated with a distal MCA aneurysm. Catheter angiography would be prudent prior to any surgical exploration to rule out an underlying vascular lesion or venous obstruction. At this time, there is no acute Neurosurgical intervention which is indicated or planned. Agree with repeat Head CT, supportive care and Neurology assessment.
[2017-10-08] MEDS ORDERED: MUPIROCIN 2% TOPICAL OINTMENT FOR DECOLONIZATION NS SCH (10:00)
--- NOTE | 2017-10-08 11:28 | EKG ---
Test Reason : Blood Pressure : / mmHG Vent. Rate : 103 BPM Atrial Rate : 103 BPM P-R Int : 166 ms QRS Dur : 082 ms QT Int : 358 ms P-R-T Axes : 057 081 040 degrees QTc Int : 468 ms SINUS TACHYCARDIA ANTERIOR INFARCT , AGE UNDETERMINED ABNORMAL ECG WHEN COMPARED WITH ECG OF 10-MAY-2012 15:31, T WAVE INVERSION NO LONGER EVIDENT IN INFERIOR LEADS Confirmed by ZINA SKELTON, LEEROY ([id number]) on 10/08/2017 11:28:14 AM Referred By: Confirmed By:LEEROY IZAGUIRRE MD
--- NOTE | 2017-10-08 11:58 | PN ---
Teaching Attending Note Name of Resident: Purvi Larios ATTENDING PHYSICIAN STATEMENT I saw and evaluated the patient. I reviewed the resident's note and discussed the case with the resident. I agree with the resident's findings and plan as documented. SUBJECTIVE: Patient seen and examined in the ICU. Awake and responsive, but with expressive aphasia and confused. Has been off Cardene drip since early AM. Denies CP or SOB. Denies LEWIS, BOV, nausea, etc. CT Head: slight increase in edema/hemorrhage Intake & Output 10/05/17 10/06/17 10/07/17 10/08/17 23:59 23:59 23:59 23:59 Intake Total 275 Output Total 800 Balance -525 Weight 210 lb 184 lb 11.2 oz Last Vital Signs Temp Pulse Resp BP Pulse Ox 98.6 F 62 16 134/75 98 10/08/17 10:00 10/08/17 10:00 10/08/17 10:00 10/08/17 10:00 10/08/17 08:00 Active Medications Acetaminophen (Ofirmev Injection -) 1,000 mg IVPB Q6H PRN PRN Reason: PAIN LEVEL 6-10 Last Admin: 10/08/17 03:21 Dose: 1,000 mg Chlorhexidine Gluconate (Hibiclens For Decolonization -) 1 applic TP HS JOEL Nicardipine HCl 25 mg/ (Dextrose) 250 mls @ 50 mls/hr IVPB TITR JOEL; 5 MG/HR PRN Reason: Protocol Last Titration: 10/08/17 06:00 Dose: 0 mg/hr, 0 mls/hr Mupirocin (Bactroban Ointment (For Decolonization) -) 1 applic NS BID JOEL Stop: 10/13/17 09:59 Constitutional: Yes: Awake and responsive, confused Eyes: Yes: Conjunctiva Clear, PERRL HENT: Yes: Atraumatic, Normocephalic Neck: Yes: Supple, Trachea Midline Cardiovascular: Yes: Regular Rate and Rhythm, Murmur, S1, S2 Respiratory: Yes: CTA Bilaterally Gastrointestinal: Yes: Normal Bowel Sounds, Soft Musculoskeletal: Yes: Back Pain Extremities: Yes: WNL Edema: No Integumentary: Yes: WNL Neurological: Yes: Expressive Aphasia, confusion ...Motor Strength: RUE, RLE Psychiatric: Yes: Confused Labs: Laboratory Results - last 24 hr 10/07/17 10/07/17 10/07/17 20:00 20:00 20:12 WBC RBC Hgb Hct MCV MCH MCHC RDW Plt Count MPV Neutrophils % Lymphocytes % Monocytes % Eosinophils % Basophils % PT with INR 11.40 INR 1.01 Sodium 141 Potassium 4.4 Chloride 109 H Carbon Dioxide 24 Anion Gap 8 BUN 24 H Creatinine 1.7 H Creat Clearance w eGFR 28.56 Random Glucose 76 Calcium 9.0 Phosphorus Magnesium Total Bilirubin 0.6 AST 28 ALT 18 Alkaline Phosphatase 82 Creatine Kinase Creatine Kinase Index CK-MB (CK-2) Troponin I 0.02 Total Protein 8.2 Albumin 4.1 Triglycerides Cholesterol Total LDL Cholesterol HDL Cholesterol Lipase 155 Urine Color Urine Appearance Urine pH Ur Specific Thompson Urine Protein Urine Glucose (UA) Urine Ketones Urine Blood Urine Nitrite Urine Bilirubin Urine Urobilinogen Ur Leukocyte Esterase Blood Type Antibody Screen 10/07/17 10/07/17 10/07/17 20:12 21:03 21:06 WBC 4.9 RBC 4.57 Hgb 14.1 Hct 42.2 MCV 92.3 MCH 30.8 MCHC 33.3 RDW 15.5 Plt Count 167 D MPV 9.0 D Neutrophils % 59.3 Lymphocytes % 30.3 D Monocytes % 6.7 Eosinophils % 2.7 Basophils % 1.0 PT with INR INR Sodium Potassium Chloride Carbon Dioxide Anion Gap BUN Creatinine Creat Clearance w eGFR Random Glucose Calcium Phosphorus Magnesium Total Bilirubin AST ALT Alkaline Phosphatase Creatine Kinase 158 Creatine Kinase Index 0.9 CK-MB (CK-2) 1.440 Troponin I 0.02 Total Protein Albumin Triglycerides 132 Cholesterol 189 Total LDL Cholesterol 138 H HDL Cholesterol 39 L Lipase Urine Color Ltyellow Urine Appearance Clear Urine pH 7.0 D Ur Specific Thompson 1.008 Urine Protein Negative Urine Glucose (UA) Negative Urine Ketones Negative Urine Blood Negative Urine Nitrite Negative Urine Bilirubin Negative Urine Urobilinogen Negative Ur Leukocyte Esterase Negative Blood Type Antibody Screen 10/07/17 10/08/17 10/08/17 22:00 05:40 05:40 WBC 4.8 RBC 4.30 Hgb 13.5 Hct 39.4 MCV 91.6 MCH 31.4 MCHC 34.2 RDW 15.2 Plt Count 170 MPV 9.1 Neutrophils % Lymphocytes % Monocytes % Eosinophils % Basophils % PT with INR 11.80 INR 1.04 Sodium Potassium Chloride Carbon Dioxide Anion Gap BUN Creatinine Creat Clearance w eGFR Random Glucose Calcium Phosphorus Magnesium Total Bilirubin AST ALT Alkaline Phosphatase Creatine Kinase Creatine Kinase Index CK-MB (CK-2) Troponin I Total Protein Albumin Triglycerides Cholesterol Total LDL Cholesterol HDL Cholesterol Lipase Urine Color Urine Appearance Urine pH Ur Specific Thompson Urine Protein Urine Glucose (UA) Urine Ketones Urine Blood Urine Nitrite Urine Bilirubin Urine Urobilinogen Ur Leukocyte Esterase Blood Type O POSITIVE Antibody Screen Negative 10/08/17 05:40 WBC RBC Hgb Hct MCV MCH MCHC RDW Plt Count MPV Neutrophils % Lymphocytes % Monocytes % Eosinophils % Basophils % PT with INR INR Sodium 141 Potassium 3.9 Chloride 108 H Carbon Dioxide 22 Anion Gap 11 BUN 21 H Creatinine 1.4 H Creat Clearance w eGFR 35.74 Random Glucose 92 Calcium 8.9 Phosphorus 3.3 Magnesium 2.2 Total Bilirubin 0.6 AST 24 ALT 17 Alkaline Phosphatase 76 Creatine Kinase Creatine Kinase Index CK-MB (CK-2) Troponin I Total Protein 7.6 Albumin 3.7 Triglycerides Cholesterol Total LDL Cholesterol HDL Cholesterol Lipase Urine Color Urine Appearance Urine pH Ur Specific Thompson Urine Protein Urine Glucose (UA) Urine Ketones Urine Blood Urine Nitrite Urine Bilirubin Urine Urobilinogen Ur Leukocyte Esterase Blood Type Antibody Screen Problem List - Problems (1) Aphasia Code(s): R47.01 - APHASIA (2) HTN (hypertension) Code(s): I10 - ESSENTIAL (PRIMARY) HYPERTENSION (3) Altered mental status Code(s): R41.82 - ALTERED MENTAL STATUS, UNSPECIFIED (4) Intracerebral hemorrhage Code(s): I61.9 - NONTRAUMATIC INTRACEREBRAL HEMORRHAGE, UNSPECIFIED Qualifiers: Intracerebral hemorrhage etiology: nontraumatic Cerebral hemorrhage location: unspecified cerebral location Laterality: left Qualified Code(s): I61.9 - Nontraumatic intracerebral hemorrhage, unspecified (5) Low back pain Code(s): M54.5 - LOW BACK PAIN Qualifiers: Chronicity: unspecified Back pain laterality: unspecified Sciatica presence: unspecified whether sciatica present Qualified Code(s): M54.5 - Low back pain (6) (?) Amyloid related bleed Assessment/Plan -Repeat CT head in AM -No surgical intervention per Neurosurgery -Close monitoring of BP -HOB elevated -Neuro checks -Hold ASA and heparin -Pain control -Will need further work up of LBP once stable -Supplemental O2 as needed -SCDs -Aspiration precautions Dr Talley Critical care time spent in reviewing chart, evaluating patient and formulating plan - 40 minutes.
[2017-10-08] MEDS ORDERED: PATIENT'S OWN MEDICATION (NON-FORMULARY) (Memantine Hcl [Namenda Xr] 21 MG) PO SCH (12:00)
--- NOTE | 2017-10-08 12:36 | CONSULT ---
Consult - text type - Consultation Consultation Note: NEUROLOGY CONSULTATION is greatly appreciated: This 87 yo RH woman lives alone. PMH sig for HTN, Hypothyroidism and GERD on amlodipine, L-Thyroxin and ranitidine. Well-known to me over many years with Slowly Progressive dementia c/w Alzheimer' s Disease, essential tremor, and chronic low back pain. On Donepezil 10 mg and memantine ER 21 mg. Brought to the ER by her children last PM with increased LBP, increased BP. In the ED she developed acute change in speech and comprehension. CT of head x 2 (reviewed) showed a large (4cm) posterior temporal hematoma on the left with mild mass effect. TIM: Now with normal BP's Neck supple. No bruits. Cor reg. No external head trauma NEURO: Awake, alert, friendly. In NAD. Fluent, gibberish, "Word salad" speech. Follows some simple commands Full bradley to threat. No facial. Gag OK No drift. normal grasps. Moves all fours well. Normal reflexes. Withdraws all fours symmetrically to pinch. IMP: 1. acute left temporal hemorrhage with receptive (Wernicke's type) aphasia. Although the BP was elevated at the ictus, I would still consider the etiology of Amyloid angiopathy 2. Alzheimer's Disease (AD). SUGGEST: No surgery Continue BP control and supportive care. Feed seated upright and observed. Will follow with you. Thank you very much, Elroy Ayoub MD
--- NOTE | 2017-10-08 12:42 | CONSULT ---
Admitting History and Physical - Admission History of Present Illness: Violetta Marin is an 87 year old female with a history of Dementia, was living independently,seen in ER for back pain with onset of Aphasia. Noncontrast Head CT - 4x4 cm Posterior Left Temporal ICH Pt is left hand dominant. 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 Cardiovascular: Yes: HTN Endocrine: Yes: Hypothyroidism - Advance Directives Advance Directives: Yes: Health Care Proxy, DNR - Smoking History Smoking history: Never smoked Have you smoked in the past 12 months: No Aproximately how many cigarettes per day: 0 - Alcohol/Substance Use Hx Alcohol Use: No History - Admission Reason For Visit: INTRACEREBRAL HEMORRHAGE - Diagnostics X-ray: Report Reviewed CT Scan: Report Reviewed - General Mental Status: Awake and Alert Attention: Intact Ability to Follow Directions: Poor Head/Neck Control: WFL - Hearing Hearing: Functional Hearing: Impaired Hearing Aide: Yes (not with pt in the hosp. ) With Patient: No Speech Evaluation - Communication Primary Language: SIN[place] (Primary) Secondary Language: [place]ET[place]ESE Communication: Yes: Aphasia Oral Expression Ability: Yes: Severe Impairment - Speech Production Able to Make Needs Known: Yes: Severely Impaired Intelligibility: Yes: Severely Impaired - Speech Characteristics Voice Loudness: Normal Voice Pitch: Yes: Normal Voice Phonatory-based Quality: Yes: Normal Speech Pattern: Normal Nasal Resonance: Normal Articulation: Yes: Precise Rate of Speech: Too Fast - Language/Auditory Comprehension Observation: Able to respond to yes/no queries: No, Comprehends Conversational Speech: No (Occasional social speech,whole body with gesture) - Language/Verbal Expression Aphasia: Yes: Fluent, Anomia, Impaired Repetition, Paraphrasic Errors, Neologisms, Sound Errors Able to Respond to Simple Queries: Yes: Severely Impaired Able to Communicate Wants and Needs: Yes: Severely Impaired Functional Communication Status: Yes: Severely Impaired Aware of Errors: No Attempts to Correct Errors: No Use of Gestures: No - Memory/Perception Visual Neglect: Yes: Right - Swallow Evaluation/Bedside Assessment Current Nutritional Intake: NPO Oral Secretions: Yes: WFL Dentition: Yes: Adequate Facial Symmetry at Rest: Symmetrical Facial Symmetry on Retraction: Symmetrical Smile: Normal Lingual Movement: Symmetric Lingual Speed of Movement: Normal Lingual Movement Strgth Against Opposition: Normal Lingual Movement Characteristics: Normal Velopharyngeal Movement: Normal Laryngeal Elevation: WFL Laryngeal Movement: Able to Palpate Rate of Intake: WFL Bolus Size: WFL Labial Seal: WFL Chewing: WFL Oral Prep Time: WFL A-P Transit: WFL Pocketing: None Timing of Swallow: WFL Coughing/Throat Clear: No Change in Voice: No Recommendations - Speech Evaluation, Impression/Plan Impression: Pt presents with Severe Wernicke's Aphasia characterized by rapid, fluent speech, predominantly unintelligible with neologisms/jargon, and very occasional intelligible words/phrases (eg daughter's name,Thank you. When coming back?) Poor awareness, no frustration. Follows some simple commands paired with gesture. Swallowing intact. Pt's daughter educated on Fluent Aphasia /ways to facilitate communication. As pt improves, generally comprehension improves before expression, often with increased frustration. - Disposition Discharge to: [facility] - Dysphagia Impressions/Plan Swallowing Skills: WFL Dysphagia Impressions: No Impairment *Silent aspiration: cannot be R/O at bedside - Recommendations Diet Consistency: Regular Medication Administration: Whole with water Liquids: Thin Liquids
--- NOTE | 2017-10-08 12:48 | PN ---
Physical Exam: SUBJECTIVE: Patient seen and examined in the ICU. Pt is a poor historian, presenting with receptive Wernicke's aphasia. Pt remains afebrile. OBJECTIVE: Vital Signs Period Temp Pulse Resp BP Sys/Donaldson Pulse Ox Last 24 Hr 97.6 F-98.9 F 56-71 14-20 122-212/59-98 95-99 GENERAL: Pt is awake and alert. Pt presents with receptive Wernicke's aphasia. In NAD. HEAD: Normal with no signs of trauma. EYES: PERRL, extraocular movements intact, sclera anicteric, conjunctiva clear. No ptosis. NECK: Trachea midline, full range of motion, supple, no JVD. LUNGS: CTAB. HEART: RRR. ABDOMEN: Soft, nontender, nondistended, normoactive bowel sounds, no guarding. EXTREMITIES: Warm, well-perfused, no edema. NEUROLOGICAL: Difficult to perform as pt unable to follow commands. Pt able to move extremities x 4. No facial droop. Laboratory Results - last 24 hr 10/07/17 10/07/17 10/07/17 20:00 20:00 20:12 WBC RBC Hgb Hct MCV MCH MCHC RDW Plt Count MPV Neutrophils % Lymphocytes % Monocytes % Eosinophils % Basophils % PT with INR 11.40 INR 1.01 Sodium 141 Potassium 4.4 Chloride 109 H Carbon Dioxide 24 Anion Gap 8 BUN 24 H Creatinine 1.7 H Creat Clearance w eGFR 28.56 Random Glucose 76 Calcium 9.0 Phosphorus Magnesium Total Bilirubin 0.6 AST 28 ALT 18 Alkaline Phosphatase 82 Creatine Kinase Creatine Kinase Index CK-MB (CK-2) Troponin I 0.02 Total Protein 8.2 Albumin 4.1 Triglycerides Cholesterol Total LDL Cholesterol HDL Cholesterol Lipase 155 Urine Color Urine Appearance Urine pH Ur Specific [place] Urine Protein Urine Glucose (UA) Urine Ketones Urine Blood Urine Nitrite Urine Bilirubin Urine Urobilinogen Ur Leukocyte Esterase Blood Type Antibody Screen 10/07/17 10/07/17 10/07/17 20:12 21:03 21:06 WBC 4.9 RBC 4.57 Hgb 14.1 Hct 42.2 MCV 92.3 MCH 30.8 MCHC 33.3 RDW 15.5 Plt Count 167 D MPV 9.0 D Neutrophils % 59.3 Lymphocytes % 30.3 D Monocytes % 6.7 Eosinophils % 2.7 Basophils % 1.0 PT with INR INR Sodium Potassium Chloride Carbon Dioxide Anion Gap BUN Creatinine Creat Clearance w eGFR Random Glucose Calcium Phosphorus Magnesium Total Bilirubin AST ALT Alkaline Phosphatase Creatine Kinase 158 Creatine Kinase Index 0.9 CK-MB (CK-2) 1.440 Troponin I 0.02 Total Protein Albumin Triglycerides 132 Cholesterol 189 Total LDL Cholesterol 138 H HDL Cholesterol 39 L Lipase Urine Color Ltyellow Urine Appearance Clear Urine pH 7.0 D Ur Specific [place] 1.008 Urine Protein Negative Urine Glucose (UA) Negative Urine Ketones Negative Urine Blood Negative Urine Nitrite Negative Urine Bilirubin Negative Urine Urobilinogen Negative Ur Leukocyte Esterase Negative Blood Type Antibody Screen 10/07/17 10/08/17 10/08/17 22:00 05:40 05:40 WBC 4.8 RBC 4.30 Hgb 13.5 Hct 39.4 MCV 91.6 MCH 31.4 MCHC 34.2 RDW 15.2 Plt Count 170 MPV 9.1 Neutrophils % Lymphocytes % Monocytes % Eosinophils % Basophils % PT with INR 11.80 INR 1.04 Sodium Potassium Chloride Carbon Dioxide Anion Gap BUN Creatinine Creat Clearance w eGFR Random Glucose Calcium Phosphorus Magnesium Total Bilirubin AST ALT Alkaline Phosphatase Creatine Kinase Creatine Kinase Index CK-MB (CK-2) Troponin I Total Protein Albumin Triglycerides Cholesterol Total LDL Cholesterol HDL Cholesterol Lipase Urine Color Urine Appearance Urine pH Ur Specific [place] Urine Protein Urine Glucose (UA) Urine Ketones Urine Blood Urine Nitrite Urine Bilirubin Urine Urobilinogen Ur Leukocyte Esterase Blood Type O POSITIVE Antibody Screen Negative 10/08/17 05:40 WBC RBC Hgb Hct MCV MCH MCHC RDW Plt Count MPV Neutrophils % Lymphocytes % Monocytes % Eosinophils % Basophils % PT with INR INR Sodium 141 Potassium 3.9 Chloride 108 H Carbon Dioxide 22 Anion Gap 11 BUN 21 H Creatinine 1.4 H Creat Clearance w eGFR 35.74 Random Glucose 92 Calcium 8.9 Phosphorus 3.3 Magnesium 2.2 Total Bilirubin 0.6 AST 24 ALT 17 Alkaline Phosphatase 76 Creatine Kinase Creatine Kinase Index CK-MB (CK-2) Troponin I Total Protein 7.6 Albumin 3.7 Triglycerides Cholesterol Total LDL Cholesterol HDL Cholesterol Lipase Urine Color Urine Appearance Urine pH Ur Specific [place] Urine Protein Urine Glucose (UA) Urine Ketones Urine Blood Urine Nitrite Urine Bilirubin Urine Urobilinogen Ur Leukocyte Esterase Blood Type Antibody Screen Active Medications Generic Name Dose Route Start Last Admin Trade Name Freq PRN Reason Stop Dose Admin Acetaminophen 1,000 mg 10/08/17 01:50 10/08/17 03:21 Ofirmev Injection - IVPB 1,000 mg Q6H PRN Administration PAIN LEVEL 6-10 Chlorhexidine Gluconate 1 applic 10/08/17 22:00 Hibiclens For Decolonization - TP HS JOEL Donepezil HCl 10 mg 10/09/17 07:00 Aricept - PO AM JOEL Nicardipine HCl 25 mg/ 250 mls @ 50 mls/hr 10/07/17 23:34 10/08/17 06:00 Dextrose IVPB 0 mg/hr TITR JOEL 0 mls/hr Protocol Titration 5 MG/HR Mupirocin 1 applic 10/08/17 10:00 Bactroban Ointment (For Decolonization) - NS 10/13/17 09:59 BID JOEL Non-Formulary Medication 21 mg 10/08/17 12:00 Memantine Hcl [Namenda Xr] PO DAILY JOEL IMAGIN10/08/[address] -> Slight interval increase in size of previously visualized Left temporal acute hemorrhage with significant surrounding edema, mass effect, and interval minimal increase in midline shift ASSESSMENT/PLAN: 87F with PMH of dementia and chronic back pain, found to have Left temporal intracranial hemorrhage, admitted to ICU. # Left temporal intracranial hemorrhage - possibly 2/2 severely elevated BP related to acute back pain - f/u Head CT tomorrow to assess interval change - Ace Logan/Demetrio at 6am this morning - Neuro checks as able - Neurosurgery (Dr. Pablo) recs appreciated: no neurosurgical intervention at this time. Possibly 2/2 a distal MCA aneursym. - pain control with Ofirmev prn # MUA - Cr improving - monitor UOP - avoid nephrotoxic agents # dementia - home meds held until pt is upgraded to taking po # FEN/ppx - Fluids: po - Electrolytes: wnl, continue to monitor - Nutrition: regular diet per Speech Therapy - DVT ppx with nhan SCDs - deconditioning ppx with PT # dispo - transfer to Telemetry Visit type - Emergency Visit Emergency Visit: Yes ED Registration Date: 10/07/17 Care time: The patient presented to the Emergency Department on the above date and was hospitalized for further evaluation of their emergent condition. - New Patient This patient is new to me today: Yes Date on this admission: 10/08/17 - Critical Care Critical Care patient: Yes Total Critical Care Time (in minutes): 45 Critical Care Statement: The care of this patient involved high complexity decision making to prevent further life threatening deterioration of the patient 's condition and/or to evaluate & treat vital organ system(s) failure or risk of failure.
--- NOTE | 2017-10-08 13:39 | PN ---
Physical Exam: SUBJECTIVE: Patient seen and examined in ICU. Weaned off cardizem gtt this AM. Awake, alert, receptive aphasia with limited comprehension. OBJECTIVE: Vital Signs Period Temp Pulse Resp BP Sys/Donaldson Pulse Ox Last 24 Hr 97.6 F-98.9 F 56-71 14-20 122-212/59-98 95-99 General: lying in bed, nad HEENT: pupils not dilated, sclera anicteric, conjunctiva clear Heart: rrr, normal s1/s2 Lungs: CTAB Abd: soft, ntnd Ext: no edema Neuro: moving all 4 extremities spontaneously, unable to follow commands, + Wernicke's receptive aphasia CBC, BMP 10/08/17 05:40 10/08/17 05:40 Hepatic Panel Total Bilirubin 0.6 mg/dL (0.2-1.0) 10/08/17 05:40 AST 24 U/L (15-37) 10/08/17 05:40 ALT 17 U/L (12-78) 10/08/17 05:40 Alkaline Phosphatase 76 U/L (45-117) 10/08/17 05:40 Albumin 3.7 g/dl (3.4-5.0) 10/08/17 05:40 INR, PTT INR 1.04 (0.82-1.09) 10/08/17 05:40 Active Medications Acetaminophen (Ofirmev Injection -) 1,000 mg IVPB Q6H PRN PRN Reason: PAIN LEVEL 6-10 Last Admin: 10/08/17 03:21 Dose: 1,000 mg Chlorhexidine Gluconate (Hibiclens For Decolonization -) 1 applic TP HS JOEL Donepezil HCl (Aricept -) 10 mg PO DAILY JOEL Nicardipine HCl 25 mg/ (Dextrose) 250 mls @ 50 mls/hr IVPB TITR JOEL; 5 MG/HR PRN Reason: Protocol Last Titration: 10/08/17 06:00 Dose: 0 mg/hr, 0 mls/hr Memantine (Namenda -) 10 mg PO BID JOEL Mupirocin (Bactroban Ointment (For Decolonization) -) 1 applic NS BID JOEL Stop: 10/13/17 09:59 ASSESSMENT/PLAN: 87yo woman with PMH of AD (on Donepezil/Mematine), HTN, hypothyroidism, GERD, and chronic low back pain who BIBEMS for back pain and while in ED developed acute aphasia and found to have acute L temporal intracranial hemorrhage. 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 Bhaskar Samayoa MD PGY1 - Internal Medicine Visit type - Emergency Visit Emergency Visit: No - New Patient This patient is new to me today: Yes Date on this admission: 10/08/17 - Critical Care Critical Care patient: Yes Total Critical Care Time (in minutes): 40 Critical Care Statement: The care of this patient involved high complexity decision making to prevent further life threatening deterioration of the patient 's condition and/or to evaluate & treat vital organ system(s) failure or risk of failure.
[2017-10-08] MEDS ORDERED: MEMANTINE HCL 5 MG TABLET (UD) PO SCH (13:45)
--- NOTE | 2017-10-08 15:48 | PN ---
Teaching Attending Note Name of Resident: Marita Samayoa ATTENDING PHYSICIAN STATEMENT I saw and evaluated the patient. I reviewed the resident's note and discussed the case with the resident. I agree with the resident's findings and plan as documented. SUBJECTIVE: Patient is awake and alert. She has expressive aphasia. OBJECTIVE: Vital Signs Period Temp Pulse Resp BP Sys/Donaldson Pulse Ox Last 24 Hr 97.6 F-98.9 F 56-71 14-20 122-212/59-98 95-99 HEART: S1S2, RRR LUNGS: Clear ABDOMEN: Soft, non-tender, non-distended, normal BS EXTREMITIES: No edema NEUROLOGICAL: Expressive aphasia, strength intact, follows some commands Laboratory Results - last 24 hr 10/07/17 10/07/17 10/07/17 20:00 20:00 20:12 WBC RBC Hgb Hct MCV MCH MCHC RDW Plt Count MPV Neutrophils % Lymphocytes % Monocytes % Eosinophils % Basophils % PT with INR 11.40 INR 1.01 Sodium 141 Potassium 4.4 Chloride 109 H Carbon Dioxide 24 Anion Gap 8 BUN 24 H Creatinine 1.7 H Creat Clearance w eGFR 28.56 Random Glucose 76 Calcium 9.0 Phosphorus Magnesium Total Bilirubin 0.6 AST 28 ALT 18 Alkaline Phosphatase 82 Creatine Kinase Creatine Kinase Index CK-MB (CK-2) Troponin I 0.02 Total Protein 8.2 Albumin 4.1 Triglycerides Cholesterol Total LDL Cholesterol HDL Cholesterol Lipase 155 Urine Color Urine Appearance Urine pH Ur Specific [place] Urine Protein Urine Glucose (UA) Urine Ketones Urine Blood Urine Nitrite Urine Bilirubin Urine Urobilinogen Ur Leukocyte Esterase Blood Type Antibody Screen 10/07/17 10/07/17 10/07/17 20:12 21:03 21:06 WBC 4.9 RBC 4.57 Hgb 14.1 Hct 42.2 MCV 92.3 MCH 30.8 MCHC 33.3 RDW 15.5 Plt Count 167 D MPV 9.0 D Neutrophils % 59.3 Lymphocytes % 30.3 D Monocytes % 6.7 Eosinophils % 2.7 Basophils % 1.0 PT with INR INR Sodium Potassium Chloride Carbon Dioxide Anion Gap BUN Creatinine Creat Clearance w eGFR Random Glucose Calcium Phosphorus Magnesium Total Bilirubin AST ALT Alkaline Phosphatase Creatine Kinase 158 Creatine Kinase Index 0.9 CK-MB (CK-2) 1.440 Troponin I 0.02 Total Protein Albumin Triglycerides 132 Cholesterol 189 Total LDL Cholesterol 138 H HDL Cholesterol 39 L Lipase Urine Color Ltyellow Urine Appearance Clear Urine pH 7.0 D Ur Specific [place] 1.008 Urine Protein Negative Urine Glucose (UA) Negative Urine Ketones Negative Urine Blood Negative Urine Nitrite Negative Urine Bilirubin Negative Urine Urobilinogen Negative Ur Leukocyte Esterase Negative Blood Type Antibody Screen 10/07/17 10/08/17 10/08/17 22:00 05:40 05:40 WBC 4.8 RBC 4.30 Hgb 13.5 Hct 39.4 MCV 91.6 MCH 31.4 MCHC 34.2 RDW 15.2 Plt Count 170 MPV 9.1 Neutrophils % Lymphocytes % Monocytes % Eosinophils % Basophils % PT with INR 11.80 INR 1.04 Sodium Potassium Chloride Carbon Dioxide Anion Gap BUN Creatinine Creat Clearance w eGFR Random Glucose Calcium Phosphorus Magnesium Total Bilirubin AST ALT Alkaline Phosphatase Creatine Kinase Creatine Kinase Index CK-MB (CK-2) Troponin I Total Protein Albumin Triglycerides Cholesterol Total LDL Cholesterol HDL Cholesterol Lipase Urine Color Urine Appearance Urine pH Ur Specific [place] Urine Protein Urine Glucose (UA) Urine Ketones Urine Blood Urine Nitrite Urine Bilirubin Urine Urobilinogen Ur Leukocyte Esterase Blood Type O POSITIVE Antibody Screen Negative 10/08/17 05:40 WBC RBC Hgb Hct MCV MCH MCHC RDW Plt Count MPV Neutrophils % Lymphocytes % Monocytes % Eosinophils % Basophils % PT with INR INR Sodium 141 Potassium 3.9 Chloride 108 H Carbon Dioxide 22 Anion Gap 11 BUN 21 H Creatinine 1.4 H Creat Clearance w eGFR 35.74 Random Glucose 92 Calcium 8.9 Phosphorus 3.3 Magnesium 2.2 Total Bilirubin 0.6 AST 24 ALT 17 Alkaline Phosphatase 76 Creatine Kinase Creatine Kinase Index CK-MB (CK-2) Troponin I Total Protein 7.6 Albumin 3.7 Triglycerides Cholesterol Total LDL Cholesterol HDL Cholesterol Lipase Urine Color Urine Appearance Urine pH Ur Specific [place] Urine Protein Urine Glucose (UA) Urine Ketones Urine Blood Urine Nitrite Urine Bilirubin Urine Urobilinogen Ur Leukocyte Esterase Blood Type Antibody Screen Current Medications Generic Name Dose Route Start Last Admin Trade Name Freq PRN Reason Stop Dose Admin Acetaminophen 1,000 mg 10/08/17 01:50 10/08/17 03:21 Ofirmev Injection - IVPB 1,000 mg Q6H PRN Administration PAIN LEVEL 6-10 Amlodipine Besylate 2.5 mg 10/09/17 10:00 Norvasc - PO DAILY JOEL Chlorhexidine Gluconate 1 applic 10/08/17 22:00 Hibiclens For Decolonization - TP HS JOEL Donepezil HCl 10 mg 10/08/17 13:45 Aricept - PO DAILY JOEL Levothyroxine Sodium 88 mcg 10/09/17 07:00 Synthroid - PO DAILY@0700 JOEL Memantine 10 mg 10/08/17 22:00 Namenda - PO BID JOEL Mupirocin 1 applic 10/08/17 10:00 Bactroban Ointment (For Decolonization) - NS 10/13/17 09:59 BID JOEL ASSESSMENT AND PLAN: This is an 87 year old woman with a history of HTN, dementia, stage 3 CKD, chronic back pain who presented to the ED with severe back pain, found to have BP 212/98 and developed agitation and expressive aphasia. 1. Left temporal intracranial hemorrhage - Has expressive and probable receptive aphasia - Nicardipine IV drip discontinued - BP control - Repeat head CT shows slight increase in size of left temporal hemorrhage with edema, mass effect and midline shift - Neurosurgery and neurology input appreciated 2. Acute kidney injury on stage 3 CKD vs progression of CKD - Creatinine is at baseline 1.4 (1.4-1.6 in 2012) 3. Hypothyroidism - Continue Synthroid 4. Alzheimer dementia - Continue Aricept, Namenda 5. HTN - Continue Norvasc
[2017-10-08] MEDS: DONEPEZIL HCL 10 MG TABLET (FP) PO SCH (15:51)
[2017-10-08] MEDS: MEMANTINE HCL 10 MG TABLET (FP) PO SCH (21:29)
[2017-10-08] MEDS ORDERED: CHLORHEXIDINE GLUCONATE 4% CLEANSER FOR DECOLONIZATION TP SCH (22:00)
[2017-10-09] MEDS: LEVOTHYROXINE NA 88 MCG TABLET (FP) PO SCH (06:18)
[2017-10-09 06:41] LABS: HEMATOCRIT 41.6 % (32.4-45.2); MCH 31.4 pg (25.7-33.7); MCHC 33.6 g/dl (32.0-36.0); MEAN CELL VOLUME 93.3 fl (80-96); MEAN PLT VOLUME 9.3 fl (7.5-11.1); PLATELET COUNT 159 K/MM3 (134-434); RBC 4.46 M/mm3 (3.60-5.2); RDW 15.4 % (11.6-15.6); WHITE BLOOD COUNT 4.5 K/mm3 (4.0-10.0)
[2017-10-09 06:57] LABS: ANION GAP 7 (8-16); CHLORIDE 108 mmol/L (98-107); CO2 26 mmol/L (21-32); POTASSIUM 4.1 mmol/L (3.5-5.1); SODIUM 141 mmol/L (136-145)
[2017-10-09 07:02] LABS: BLOOD UREA NITROGEN 20 mg/dL (7-18); CALCIUM 9.1 mg/dL (8.5-10.1); CREATININE 1.4 mg/dL (0.55-1.02); GLUCOSE,RANDOM 80 mg/dL (74-106); MAGNESIUM 2.5 mg/dL (1.8-2.4); PHOSPHOROUS 3.4 mg/dL (2.5-4.9)
--- NOTE | 2017-10-09 08:55 | PN ---
Teaching Attending Note Name of Resident: Marita Samayoa ATTENDING PHYSICIAN STATEMENT I saw and evaluated the patient. I reviewed the resident's note and discussed the case with the resident. I agree with the resident's findings and plan as documented. SUBJECTIVE: Patient is better but does not follow any commands, Uses words like speaking a different language followed by inappropriate full sentences. Daughter at bedside OBJECTIVE: Vital Signs Temperature 98.4 F 10/09/17 06:00 Pulse Rate 70 10/09/17 06:00 Respiratory Rate 17 10/09/17 06:00 Blood Pressure 172/79 10/09/17 06:00 O2 Sat by Pulse Oximetry (%) 98 10/08/17 20:03 GEN: No acute distress. comfortable with no acute distress. HEENT: Pupils reactive , no JVD CV: S1, S2 positive , w/ irregular beats, 3/6 systolic murrmur in RUSB LUNG: CTABL ABD: Soft, NT, ND, normoactive BS, NR MSK: Moves symmetrically, difficutl to assess strength, able to lift both hands against gravity. NEURO:awake, but does not follow any commands, does not use full sentences and can't understand the words CBCD WBC 4.5 K/mm3 (4.0-10.0) 10/09/17 05:37 RBC 4.46 M/mm3 (3.60-5.2) 10/09/17 05:37 Hgb 14.0 GM/dL (10.7-15.3) 10/09/17 05:37 Hct 41.6 % (32.4-45.2) 10/09/17 05:37 MCV 93.3 fl (80-96) 10/09/17 05:37 MCHC 33.6 g/dl (32.0-36.0) 10/09/17 05:37 RDW 15.4 % (11.6-15.6) 10/09/17 05:37 Plt Count 159 K/MM3 (134-434) 10/09/17 05:37 MPV 9.3 fl (7.5-11.1) 10/09/17 05:37 CMP Sodium 141 mmol/L (136-145) 10/09/17 05:37 Potassium 4.1 mmol/L (3.5-5.1) 10/09/17 05:37 Chloride 108 mmol/L (98-107) H 10/09/17 05:37 Carbon Dioxide 26 mmol/L (21-32) 10/09/17 05:37 Anion Gap 7 (8-16) L 10/09/17 05:37 BUN 20 mg/dL (7-18) H 10/09/17 05:37 Creatinine 1.4 mg/dL (0.55-1.02) H 10/09/17 05:37 Creat Clearance w eGFR 35.74 (>60) 10/08/17 05:40 Random Glucose 80 mg/dL (74-106) 10/09/17 05:37 Calcium 9.1 mg/dL (8.5-10.1) 10/09/17 05:37 Total Bilirubin 0.6 mg/dL (0.2-1.0) 10/08/17 05:40 AST 24 U/L (15-37) 10/08/17 05:40 ALT 17 U/L (12-78) 10/08/17 05:40 Alkaline Phosphatase 76 U/L (45-117) 10/08/17 05:40 Total Protein 7.6 g/dl (6.4-8.2) 10/08/17 05:40 Albumin 3.7 g/dl (3.4-5.0) 10/08/17 05:40 CARDIAC ENZYMES Creatine Kinase 158 IU/L (26-192) 10/07/17 20:12 Troponin I 0.02 ng/ml (0.00-0.05) 10/07/17 20:12 Current Medications Generic Name Dose Route Start Last Admin Trade Name Bryon PRN Reason Stop Dose Admin Acetaminophen 1,000 mg 10/08/17 21:00 Ofirmev Injection - IVPB Q6H PRN PAIN LEVEL 6-10 Amlodipine Besylate 2.5 mg 10/09/17 10:00 Norvasc - PO DAILY JOEL Donepezil HCl 10 mg 10/08/17 13:45 10/08/17 15:51 Aricept - PO 10 mg DAILY JOEL Administration Levothyroxine Sodium 88 mcg 10/09/17 07:00 10/09/17 06:18 Synthroid - PO 88 mcg DAILY@0700 JOEL Administration Memantine 10 mg 10/08/17 22:00 10/08/17 21:29 Namenda - PO 10 mg BID JOEL Administration Home Medications Medication Instructions Recorded Amlodipine Besylate [Norvasc -] 2.5 mg PO DAILY #0 tablet 05/15/12 Aspirin [ASA -] 81 mg PO DAILY #0 tab.chew 05/15/12 Biotin 1 mg PO DAILY #0 tablet 05/15/12 Cholecalciferol (Vitamin D3) 400 unit PO DAILY #0 capsule 05/15/12 [Vitamin D3] Levothyroxine [Synthroid -] 88 mcg PO DAILY@0700 #0 tablet 05/15/12 Multivitamin [Multivitamins] 1 each PO DAILY #0 capsule 05/15/12 Ranitidine [Zantac -] 150 mg PO HS #0 tablet 05/15/12 Donepezil HCl 10 mg PO AM 10/08/17 Memantine HCl [Namenda Xr] 21 mg PO DAILY 10/08/17 ASSESSMENT AND PLAN: This is an 87 year old woman with a history of HTN, dementia, stage 3 CKD, chronic back pain who presented to the ED with severe back pain, found to have BP 212/98 and developed agitation and expressive aphasia. # Acute Left temporal intracranial hemorrhage s/p Nicardipine drip with expressive and receptive aphasia, Repeat head CT shows slight increase in size of left temporal hemorrhage with edema, mass effect and midline shift. Neurology and neurosurgeon on the case. # Acute kidney injury on stage 3 CKD vs progression of CKD, baseline creatinine is (1.4-1.6 in 2011) # Hypothyroidism on Synthroid continue # Alzheimer dementia on Aricept, Namenda continue # HTN continue Norvasc DVT PX: SCDs; can't anticoagulate due to head bleed.
--- NOTE | 2017-10-09 08:55 | PN ---
Physical Exam: SUBJECTIVE: Patient seen and examined. No acute events overnight. This am, pt still with expressive aphasia, unable to respond appropriately or follow simple commands. OBJECTIVE: Vital Signs Period Temp Pulse Resp BP Sys/Donaldson Pulse Ox Last 24 Hr 98.2 F-98.7 F 56-82 14-19 134-187/58-96 98 GENERAL: elderly female, lying in bed, in NAD HEENT: pinpoint pupils b/l LUNGS: CTAB, no rales or wheezing HEART: RRR, no murmurs ABDOMEN: soft, NT, ND EXTREMITIES: no edema NEUROLOGICAL: moving all extremities spontaneously, but not responding appropriately or following commands Laboratory Results - last 24 hr 10/08/17 10/08/17 10/09/17 06:00 06:00 05:37 WBC 4.5 RBC 4.46 Hgb 14.0 Hct 41.6 MCV 93.3 MCH 31.4 MCHC 33.6 RDW 15.4 Plt Count 159 MPV 9.3 Sodium Potassium Chloride Carbon Dioxide Anion Gap BUN Creatinine Random Glucose Calcium Phosphorus Magnesium Ur Random Sodium 116 Ur Random Potassium 22.0 Ur Random Chloride 112 Urine Creatinine 75.6 10/09/17 05:37 WBC RBC Hgb Hct MCV MCH MCHC RDW Plt Count MPV Sodium 141 Potassium 4.1 Chloride 108 H Carbon Dioxide 26 Anion Gap 7 L BUN 20 H Creatinine 1.4 H Random Glucose 80 Calcium 9.1 Phosphorus 3.4 Magnesium 2.5 H Ur Random Sodium Ur Random Potassium Ur Random Chloride Urine Creatinine Active Medications Generic Name Dose Route Start Last Admin Trade Name Freq PRN Reason Stop Dose Admin Acetaminophen 1,000 mg 10/08/17 21:00 Ofirmev Injection - IVPB Q6H PRN PAIN LEVEL 6-10 Amlodipine Besylate 2.5 mg 10/09/17 10:00 Norvasc - PO DAILY JOEL Donepezil HCl 10 mg 10/08/17 13:45 10/08/17 15:51 Aricept - PO 10 mg DAILY JOEL Administration Levothyroxine Sodium 88 mcg 10/09/17 07:00 10/09/17 06:18 Synthroid - PO 88 mcg DAILY@0700 JOEL Administration Memantine 10 mg 10/08/17 22:00 10/08/17 21:29 Namenda - PO 10 mg BID JOEL Administration ASSESSMENT/PLAN: 87F with PMH of dementia and chronic back pain, found to have a left temporal intracranial hemorrhage, admitted to ICU. Neuro # Left temporal intracranial hemorrhage - possibly 2/2 severely elevated BP vs. distal MCA aneursym - f/u Head CT to assess interval change - Neuro checks as able - Neurosurgery (Dr. Pablo) recs appreciated: no neurosurgical intervention at this time - pain control with Ofirmev prn - control BP with norvasc - protonix for GI ppx # Dementia - continue home donepezil and memantine Renal # MAU - Cr stable at 1.4 - monitor UOP - avoid nephrotoxic agents FEN/ppx - Fluids: po - Electrolytes: wnl, continue to monitor - Nutrition: regular diet per Speech Therapy - DVT ppx with nhan SCDs - GI ppx: protonix Dispo - transfer to Telemetry Case discussed with attending, Dr. Talley. -Americo Lazo MD PGY1 Visit type - Emergency Visit Emergency Visit: Yes ED Registration Date: 10/07/17 Care time: The patient presented to the Emergency Department on the above date and was hospitalized for further evaluation of their emergent condition. - New Patient This patient is new to me today: Yes Date on this admission: 10/09/17 - Critical Care Critical Care patient: Yes Total Critical Care Time (in minutes): 36 Critical Care Statement: The care of this patient involved high complexity decision making to prevent further life threatening deterioration of the patient 's condition and/or to evaluate & treat vital organ system(s) failure or risk of failure.
--- NOTE | 2017-10-09 09:17 | PN ---
Physical Exam: SUBJECTIVE: Patient seen and examined in ICU. No events overnight. Awake, alert , but poor awareness, continues to have receptive aphasia OBJECTIVE: Vital Signs Period Temp Pulse Resp BP Sys/Donaldson Pulse Ox Last 24 Hr 98.2 F-98.7 F 56-82 14-19 134-187/58-96 98 Intake & Output 10/06/17 10/07/17 10/08/17 10/09/17 23:59 23:59 23:59 23:59 Intake Total 685 Output Total 1800 325 Balance -1115 -325 Weight 95.254 kg 83.779 kg 83.6 kg General: lying in bed, awake, alert HEENT: sclera anicteric, conjunctiva clear Heart: rrr, normal s1/s2 Lungs: CTAB Abd: soft, ntnd Ext: no edema Neuro: moving all 4 extremities spontaneously, +Wernicke's receptive aphasia, able to follow some commands CBC, BMP 10/09/17 05:37 10/09/17 05:37 Hepatic Panel Total Bilirubin 0.6 mg/dL (0.2-1.0) 10/08/17 05:40 AST 24 U/L (15-37) 10/08/17 05:40 ALT 17 U/L (12-78) 10/08/17 05:40 Alkaline Phosphatase 76 U/L (45-117) 10/08/17 05:40 Albumin 3.7 g/dl (3.4-5.0) 10/08/17 05:40 IMAGING: EXAM#: TYPE/EXAM: RESULT: [id number] CT/HEAD CT WITHOUT CONTRAST FOLLOW-UP TEMPORAL HEMATOMA. CT SCAN OF THE BRAIN C-. Findings. Serial axial images of the brain were obtained from foramen magnum to the cranial vertex without intravenous contrast. The study was supplemented with computer-generated coronal and sagittal reconstruction images. The present study was compared with CT of the brain October 08, 2017. Acute left temporal lobe hematoma with peripheral edema measuring chapo. 4.6 cm x 2.6 cm x 6.8 cm. CSF spaces unchanged from prior examination. There is no evidence of hydrocephalus. No evidence of herniation. Hematoma exhibits mass effect on the posterior aspect of the left lateral ventricle. Examination of the bone windows show no fracture. The visualized paranasal sinuses and mastoid air cells are clear. Symmetrical ocular globes. Unremarkable retro-orbital soft tissues. Impression. Acute left temporal lobe hematoma with peripheral edema measuring chapo. 4.6 cm x 2.6 cm x 6.8 cm. No evidence of hydrocephalus, herniation. Active Medications Acetaminophen (Ofirmev Injection -) 1,000 mg IVPB Q6H PRN PRN Reason: PAIN LEVEL 6-10 Amlodipine Besylate (Norvasc -) 5 mg PO DAILY [facility] Donepezil HCl (Aricept -) 10 mg PO DAILY [facility] Last Admin: 10/09/17 10:17 Dose: 10 mg Levothyroxine Sodium (Synthroid -) 88 mcg PO DAILY@0700 [facility] Last Admin: 10/09/17 06:18 Dose: 88 mcg Memantine (Namenda -) 10 mg PO BID [facility] Last Admin: 10/09/17 10:17 Dose: 10 mg ASSESSMENT/PLAN: 87yo woman with PMH of AD (on Donepezil/Mematine), HTN, hypothyroidism, GERD, and chronic low back pain who BIBEMS for back pain and while in ED developed acute aphasia and found to have acute L temporal intracranial hemorrhage. 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 Ayoub) -Supportive measures: Keep SBP 140-160mm Hg -Neuro checks q1h, fall precautions, aspiration precautions, HOB elevated -PRINTING AND STAMPING SUPERVISOR evaluation: appreciate recommendations and family education -Repeat Head CT this AM: no significant change hematoma from yesterday #worsening back pain, unclear etiology -f/u CT lumbar spine, report pending -Tylenol PO for pain control #MAU on CKD, Cr plateaued 1.4 (from 1.7); last known Cr 1.1 in 02/2013 -Urine studies sent 10/08, Calculated FeNa 1.5% #AD - c/w home meds #Hypothyroidism - c/w home synthroid #FEN/PPx PO intake lytes wnl Na controlled diet SCD's #Palliative care consult #PT evaluation #Dispo - transfer to tele DNR/DNI d/w Dr. Monalisa Samayoa MD PGY1 - Internal Medicine Visit type - Emergency Visit Emergency Visit: No - New Patient This patient is new to me today: No - Critical Care Critical Care patient: Yes Total Critical Care Time (in minutes): 40 Critical Care Statement: The care of this patient involved high complexity decision making to prevent further life threatening deterioration of the patient 's condition and/or to evaluate & treat vital organ system(s) failure or risk of failure.
[2017-10-09] MEDS ORDERED: amLODIPine BESYLATE 2.5 MG TABLET (FP) PO SCH (10:00)
[2017-10-09] MEDS: MEMANTINE HCL 10 MG TABLET (FP) PO SCH ×2 (10:17→21:35)
[2017-10-09] MEDS: DONEPEZIL HCL 10 MG TABLET (FP) PO SCH (10:17)
[2017-10-09] MEDS ORDERED: amLODIPine BESYLATE 5 MG TABLET (FP) PO SCH (11:17)
--- NOTE | 2017-10-09 11:39 | PN ---
Teaching Attending Note Name of Resident: Americo Lazo ATTENDING PHYSICIAN STATEMENT I saw and evaluated the patient. I reviewed the resident's note and discussed the case with the resident. I agree with the resident's findings and plan as documented. SUBJECTIVE: Patient seen and examined in the ICU. Awake and responsive, no gross change in expressive aphasia and confused. Indicates no CP or SOB. Intake & Output 10/06/17 10/07/17 10/08/17 10/09/17 23:59 23:59 23:59 23:59 Intake Total 685 Output Total 1800 325 Balance -1115 -325 Weight 210 lb 184 lb 11.2 oz 184 lb 4.903 oz Last Vital Signs Temp Pulse Resp BP Pulse Ox 97.9 F 61 18 168/64 99 10/09/17 10:00 10/09/17 10:00 10/09/17 10:00 10/09/17 10:00 10/09/17 10:00 Active Medications Acetaminophen (Ofirmev Injection -) 1,000 mg IVPB Q6H PRN PRN Reason: PAIN LEVEL 6-10 Amlodipine Besylate (Norvasc -) 5 mg PO DAILY [facility] Donepezil HCl (Aricept -) 10 mg PO DAILY [facility] Last Admin: 10/09/17 10:17 Dose: 10 mg Levothyroxine Sodium (Synthroid -) 88 mcg PO DAILY@0700 [facility] Last Admin: 10/09/17 06:18 Dose: 88 mcg Memantine (Namenda -) 10 mg PO BID [facility] Last Admin: 10/09/17 10:17 Dose: 10 mg Constitutional: Yes: Awake and responsive, confused Eyes: Yes: Conjunctiva Clear, PERRL HENT: Yes: Atraumatic, Normocephalic Neck: Yes: Supple, Trachea Midline Cardiovascular: Yes: Regular Rate and Rhythm, Murmur, S1, S2 Respiratory: Yes: CTA Bilaterally Gastrointestinal: Yes: Normal Bowel Sounds, Soft Musculoskeletal: Yes: Back Pain Extremities: Yes: WNL Edema: No Integumentary: Yes: WNL Neurological: Yes: Expressive Aphasia, confusion ...Motor Strength: RUE, RLE Psychiatric: Yes: Confused Labs: Laboratory Results - last 24 hr 10/08/17 10/08/17 10/09/17 06:00 06:00 05:37 WBC 4.5 RBC 4.46 Hgb 14.0 Hct 41.6 MCV 93.3 MCH 31.4 MCHC 33.6 RDW 15.4 Plt Count 159 MPV 9.3 Sodium Potassium Chloride Carbon Dioxide Anion Gap BUN Creatinine Random Glucose Calcium Phosphorus Magnesium Ur Random Sodium 116 Ur Random Potassium 22.0 Ur Random Chloride 112 Urine Creatinine 75.6 10/09/17 05:37 WBC RBC Hgb Hct MCV MCH MCHC RDW Plt Count MPV Sodium 141 Potassium 4.1 Chloride 108 H Carbon Dioxide 26 Anion Gap 7 L BUN 20 H Creatinine 1.4 H Random Glucose 80 Calcium 9.1 Phosphorus 3.4 Magnesium 2.5 H Ur Random Sodium Ur Random Potassium Ur Random Chloride Urine Creatinine Problem List - Problems (1) Aphasia Code(s): R47.01 - APHASIA (2) HTN (hypertension) Code(s): I10 - ESSENTIAL (PRIMARY) HYPERTENSION (3) Altered mental status Code(s): R41.82 - ALTERED MENTAL STATUS, UNSPECIFIED (4) Intracerebral hemorrhage Code(s): I61.9 - NONTRAUMATIC INTRACEREBRAL HEMORRHAGE, UNSPECIFIED Qualifiers: Intracerebral hemorrhage etiology: nontraumatic Cerebral hemorrhage location: unspecified cerebral location Laterality: left Qualified Code(s): I61.9 - Nontraumatic intracerebral hemorrhage, unspecified (5) Low back pain Code(s): M54.5 - LOW BACK PAIN Qualifiers: Chronicity: unspecified Back pain laterality: unspecified Sciatica presence: unspecified whether sciatica present Qualified Code(s): M54.5 - Low back pain (6) (?) Amyloid related bleed Assessment/Plan -No surgical intervention per Neurosurgery -Close monitoring of BP: SBP: 140 to 160mmHG -HOB elevated -Neuro checks -Hold ASA and heparin -Pain control -Follow CT imaging for LBP -Supplemental O2 as needed -SCDs -Aspiration precautions -Neuro unit monitoring Dr Talley Critical care time spent in reviewing chart, evaluating patient and formulating plan - 40 minutes.
[2017-10-09] MEDS ORDERED: amLODIPine BESYLATE 2.5 MG TABLET (FP) PO ONE (13:42)
[2017-10-09] MEDS: PANTOPRAZOLE 40 MG TABLET (FP) PO SCH (13:55)
[2017-10-09 15:01] VITALS: BMI 29.7
--- NOTE | 2017-10-09 16:27 | PN ---
Progress Note (short form) - Note Progress Note: NEUROLOGY FOLLOW-UP: Events reviewed and discussed with RN. CT scans reviewed. Patient is resting comfortably. No indication of headache, back pain, nauseas, etc. Awake, alert, more attentive but still fluent but gibberish speech Follows some simple commands. Probably less reaction to visual threat from the right than the left. No facial. Gag OK - Tolerating PO without difficulty No drift. No strength and reflexes. CT of head: No sig change in the size of the left posterior temporal lobar hematoma. CT of LS spine: Chronic degenerative changes. No fractures, dislocations or compression fractures. IMP: Stable s/p Left temporal bleed. 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 Suggest: OK to transfer to the floor. Mobilize OOB to chair. Keep BP in the normal range. Plan rehab transfer for speech therapy. Continue donepezil and memantine. Thank you very much, Elroy Ayoub MD
--- NOTE | 2017-10-09 17:16 | PN ---
Progress Note, HEALTH AND WELLNESS COACH - Note Progress Note: Patient seen at bedside for SpTx. Worked on understanding and using gestures to express: comfort, thirst, lights on/off Patient understands some object use and was able to look at the clock and state the correct hour. Patient uses "no" and "no more" to refuse in appropriate contexts. Patient accepted and tolerated liquids without signs of difficulty, but declined snack of cookies. Patient will benefit from ongoing SpTx services to improve communication.
[2017-10-09] MEDS ORDERED: DONEPEZIL HCL 10 MG TABLET (FP) PO SCH (22:00)
[2017-10-10] MEDS: LEVOTHYROXINE NA 88 MCG TABLET (FP) PO SCH (06:40)
[2017-10-10 07:42] LABS: CHLORIDE 106 mmol/L (98-107); POTASSIUM 3.8 mmol/L (3.5-5.1); SODIUM 139 mmol/L (136-145)
[2017-10-10 07:48] LABS: BASO % 1.2 % (0-2.0); EOS % 1.6 % (0-4.5); HEMATOCRIT 40.6 % (32.4-45.2); HEMOGLOBIN 13.8 GM/dL (10.7-15.3); LYMPH % 19.1 % (8-40); MCH 31.2 pg (25.7-33.7); MEAN CELL VOLUME 91.7 fl (80-96); MEAN PLT VOLUME 9.3 fl (7.5-11.1); MONO % 6.7 % (3.8-10.2); NEUT % 71.4 % (42.8-82.8); PLATELET COUNT 158 K/MM3 (134-434); RBC 4.43 M/mm3 (3.60-5.2); RDW 14.9 % (11.6-15.6); WHITE BLOOD COUNT 5.3 K/mm3 (4.0-10.0)
[2017-10-10 07:49] LABS: ALBUMIN 3.6 g/dl (3.4-5.0); ALK PHOS 73 U/L (45-117); ANION GAP 7 (8-16); BILIRUBIN,TOTAL 0.7 mg/dL (0.2-1.0); BLOOD UREA NITROGEN 18 mg/dL (7-18); CALCIUM 8.7 mg/dL (8.5-10.1); CO2 26 mmol/L (21-32); CREATININE 1.3 mg/dL (0.55-1.02); GLUCOSE,RANDOM 94 mg/dL (74-106); MAGNESIUM 2.1 mg/dL (1.8-2.4); PHOSPHOROUS 2.6 mg/dL (2.5-4.9); SGOT/AST 22 U/L (15-37); SGPT/ALT 15 U/L (12-78); TOT PROT 7.3 g/dl (6.4-8.2)
--- NOTE | 2017-10-10 09:02 | PN ---
Progress Note (short form) - Note Progress Note: Patient continues to speak without making any sense. Daughter at bedside. Lookes slightly lethargic. Vital Signs Temperature 98.8 F 10/10/17 06:00 Pulse Rate 81 10/10/17 06:00 Respiratory Rate 20 10/10/17 06:00 Blood Pressure 160/82 10/10/17 06:00 O2 Sat by Pulse Oximetry (%) 99 10/09/17 10:00 GEN: No acute distress. comfortable with no acute distress. HEENT: Pupils reactive , no JVD CV: S1, S2 positive , w/ irregular beats, 3/6 systolic murrmur in RUSB LUNG: CTABL ABD: Soft, NT, ND, normoactive BS, NR MSK: Moves symmetrically, difficult to assess strength, able to lift both hands against gravity. NEURO:awake, but does not follow any commands, does not use full sentences and can't understand the words that she says, has expressive and receptive aphasia CBCD WBC 5.3 K/mm3 (4.0-10.0) 10/10/17 06:00 RBC 4.43 M/mm3 (3.60-5.2) 10/10/17 06:00 Hgb 13.8 GM/dL (10.7-15.3) 10/10/17 06:00 Hct 40.6 % (32.4-45.2) 10/10/17 06:00 MCV 91.7 fl (80-96) 10/10/17 06:00 MCHC 34.0 g/dl (32.0-36.0) 10/10/17 06:00 RDW 14.9 % (11.6-15.6) 10/10/17 06:00 Plt Count 158 K/MM3 (134-434) 10/10/17 06:00 MPV 9.3 fl (7.5-11.1) 10/10/17 06:00 CMP Sodium 139 mmol/L (136-145) 10/10/17 06:00 Potassium 3.8 mmol/L (3.5-5.1) 10/10/17 06:00 Chloride 106 mmol/L (98-107) 10/10/17 06:00 Carbon Dioxide 26 mmol/L (21-32) 10/10/17 06:00 Anion Gap 7 (8-16) L 10/10/17 06:00 BUN 18 mg/dL (7-18) 10/10/17 06:00 Creatinine 1.3 mg/dL (0.55-1.02) H 10/10/17 06:00 Creat Clearance w eGFR 38.93 (>60) 10/10/17 06:00 Random Glucose 94 mg/dL (74-106) 10/10/17 06:00 Calcium 8.7 mg/dL (8.5-10.1) 10/10/17 06:00 Total Bilirubin 0.7 mg/dL (0.2-1.0) 10/10/17 06:00 AST 22 U/L (15-37) 10/10/17 06:00 ALT 15 U/L (12-78) 10/10/17 06:00 Alkaline Phosphatase 73 U/L (45-117) 10/10/17 06:00 Total Protein 7.3 g/dl (6.4-8.2) 10/10/17 06:00 Albumin 3.6 g/dl (3.4-5.0) 10/10/17 06:00 CARDIAC ENZYMES Creatine Kinase 158 IU/L (26-192) 10/07/17 20:12 Troponin I 0.02 ng/ml (0.00-0.05) 10/07/17 20:12 Current Medications Generic Name Dose Route Start Last Admin Trade Name Bryon PRN Reason Stop Dose Admin Acetaminophen 1,000 mg 10/08/17 21:00 Ofirmev Injection - IVPB Q6H PRN PAIN LEVEL 6-10 Amlodipine Besylate 5 mg 10/09/17 11:17 Norvasc - PO DAILY [facility] Donepezil HCl 10 mg 10/08/17 13:45 10/09/17 10:17 Aricept - PO 10 mg DAILY [facility] Administration Levothyroxine Sodium 88 mcg 10/09/17 07:00 10/10/17 06:40 Synthroid - PO 88 mcg DAILY@0700 [facility] Administration Memantine 10 mg 10/08/17 22:00 10/09/17 21:35 Namenda - PO Not Given BID [facility] Pantoprazole Sodium 40 mg 10/09/17 14:00 10/09/17 13:55 Protonix - PO 40 mg DAILY [facility] Administration Home Medications Medication Instructions Recorded Amlodipine Besylate [Norvasc -] 2.5 mg PO DAILY #0 tablet 05/15/12 Aspirin [ASA -] 81 mg PO DAILY #0 tab.chew 05/15/12 Biotin 1 mg PO DAILY #0 tablet 05/15/12 Cholecalciferol (Vitamin D3) 400 unit PO DAILY #0 capsule 05/15/12 [Vitamin D3] Levothyroxine [Synthroid -] 88 mcg PO DAILY@0700 #0 tablet 05/15/12 Multivitamin [Multivitamins] 1 each PO DAILY #0 capsule 05/15/12 Ranitidine [Zantac -] 150 mg PO HS #0 tablet 05/15/12 Donepezil HCl 10 mg PO AM 10/08/17 Memantine HCl [Namenda Xr] 21 mg PO DAILY 10/08/17 A/P: This is an 87 year old woman with a history of HTN, dementia, stage 3 CKD, chronic back pain who presented to the ED with severe back pain, found to have BP 212/98 and developed agitation and expressive aphasia. # Acute Left temporal intracranial hemorrhage s/p Nicardipine drip with expressive aphasia, Repeat head CT shows slight increase in size of left temporal hemorrhage with edema, mass effect and midline shift. Neurology on her case and neurosurgeon on the case. CT repeated x3 with no changes. # Elevated Blood pressure added Labetolol 100mg po bid keep blood pressure around 120/80. # Acute kidney injury improved ;stage 3 CKD with baseline creatinine is (1.4- 1.6 in 2011) # Hypothyroidism on Synthroid continue # Alzheimer dementia on Aricept, Namenda continue # HTN continue Norvasc DVT Px: SCDs waiting for rehab placement she will need speech therapy /PT Visit type - Emergency Visit Emergency Visit: Yes ED Registration Date: 10/07/17 Care time: The patient presented to the Emergency Department on the above date and was hospitalized for further evaluation of their emergent condition. - New Patient This patient is new to me today: No - Critical Care Critical Care patient: No - Discharge Referral Referred to [facility] Med P.C.: No
[2017-10-10] MEDS: PANTOPRAZOLE 40 MG TABLET (FP) PO SCH (10:47)
[2017-10-10] MEDS: MEMANTINE HCL 10 MG TABLET (FP) PO SCH ×2 (10:47→21:11)
[2017-10-10] MEDS: DONEPEZIL HCL 10 MG TABLET (FP) PO SCH (10:47)
[2017-10-10] MEDS ORDERED: amLODIPine BESYLATE 5 MG TABLET (FP) PO ONE (12:50)
[2017-10-11] MEDS: LEVOTHYROXINE NA 88 MCG TABLET (FP) PO SCH (05:59)
[2017-10-11] MEDS: amLODIPine BESYLATE 5 MG TABLET (FP) PO SCH ×2 (06:00→10:09)
--- NOTE | 2017-10-11 08:51 | PN ---
Physical Exam: SUBJECTIVE: Patient seen and examined - No major overnight events; Slept well overnight; incontinent of urine; afebrile, BP remains elevated intermittently to 160s systolic OBJECTIVE: Vital Signs Period Temp Pulse Resp BP Sys/Donaldson Pulse Ox Last 24 Hr 96.6 F-99.3 F 68-82 16-20 143-180/62-91 96-99 GENERAL: Elderly woman, NAD HEAD: NCAT LUNGS: CTABL HEART: RRR, S1, S2 without murmur, rub or gallop. ABDOMEN: Soft, nontender, nondistended, normoactive bowel sounds, no guarding, no rebound EXTREMITIES: 2+ pulses, warm, well-perfused, no edema. NEUROLOGICAL: Cranial nerves II through XII grossly intact. nonsensical, but fluid speech. moving all extremities, no gross motor or sensory Active Medications Generic Name Dose Route Start Last Admin Trade Name Freq PRN Reason Stop Dose Admin Acetaminophen 1,000 mg 10/08/17 21:00 Ofirmev Injection - IVPB Q6H PRN PAIN LEVEL 6-10 Amlodipine Besylate 10 mg 10/11/17 06:00 10/11/17 06:00 Norvasc - PO 10 mg DAILY [facility] Administration Donepezil HCl 10 mg 10/08/17 13:45 10/10/17 10:47 Aricept - PO 10 mg DAILY [facility] Administration Levothyroxine Sodium 88 mcg 10/09/17 07:00 10/11/17 05:59 Synthroid - PO 88 mcg DAILY@0700 [facility] Administration Memantine 10 mg 10/08/17 22:00 10/10/17 21:11 Namenda - PO 10 mg BID [facility] Administration Pantoprazole Sodium 40 mg 10/09/17 14:00 10/10/17 10:47 Protonix - PO 40 mg DAILY [facility] Administration Micro none CT of head 10/09: No sig change in the size of the left posterior temporal lobar hematoma. CT of LS spine: Chronic degenerative changes. No fractures, dislocations or compression fractures. CT head 10/10 - no significant interval change in L posterior/temporal hematoma ASSESSMENT/PLAN: 87yo woman with PMH of AD (on Donepezil/Mematine), HTN, hypothyroidism, GERD, and chronic low back pain who BIBEMS for back pain and while in ED developed acute aphasia and found to have acute L temporal intracranial hemorrhage. #L temporal ICH - possibly 2/2 to distal MCA aneurysm; repeat CT head with no change -Per Neurosurgery - no surgical intervention at this time -Neurology following (Dr. Ayoub) -Supportive measures, keep BP 140-160 - started on labetalol 100 BID for BP control as pt persistently above 160 overnight -Neuro checks q1h, fall precautions, aspiration precautions, HOB elevated -f/u CORPORATE STRATEGY ANALYST eval - plan for transfer to rehab - palliative care consulted - PT eval #worsening back pain - unknown etiology -CT spine results as noted above -Tylenol for pain #MAU on CKD, Cr plateaued 1.4 (from 1.7); last known Cr 1.1 in 02/2013 -Urine studies sent 10/08, Calculated FeNa 1.5% - trend Cr - PO hydration #Alz dementia -c/w home meds #Hypothyroidism - c/w home synthroid #FEN PO hydration Daily lytes wnl Na controlled diet PPX SCDs #Dispo - telemetry DNR/DNI discussed with attending, Dr. Monalisa Rg, PGY1 Visit type - Emergency Visit Emergency Visit: Yes ED Registration Date: 10/07/17 Care time: The patient presented to the Emergency Department on the above date and was hospitalized for further evaluation of their emergent condition. - New Patient This patient is new to me today: Yes Date on this admission: 10/11/17 - Critical Care Critical Care patient: No - Discharge Referral Referred to [facility] Med P.C.: No
[2017-10-11] MEDS: DONEPEZIL HCL 10 MG TABLET (FP) PO SCH (10:10)
[2017-10-11] MEDS: PANTOPRAZOLE 40 MG TABLET (FP) PO SCH (10:11)
[2017-10-11] MEDS: MEMANTINE HCL 10 MG TABLET (FP) PO SCH ×2 (10:11→22:27)
[2017-10-11] MEDS: LABETALOL HCL 100 MG TABLET (FP) PO SCH ×2 (14:09→22:27)
--- NOTE | 2017-10-11 17:25 | PN ---
Teaching Attending Note Name of Resident: Avila Rg ATTENDING PHYSICIAN STATEMENT I saw and evaluated the patient. I reviewed the resident's note and discussed the case with the resident. I agree with the resident's findings and plan as documented. SUBJECTIVE: Patient has no changes, continues to have expressive and receptive aphasia. Does not follow any commands. OBJECTIVE: Vital Signs Temperature 98.9 F 10/11/17 14:29 Pulse Rate 70 10/11/17 14:29 Respiratory Rate 18 10/11/17 14:29 Blood Pressure 116/54 10/11/17 14:29 O2 Sat by Pulse Oximetry (%) 96 10/11/17 11:41 GEN: No acute distress. comfortable with no acute distress. HEENT: Pupils reactive , no JVD CV: S1, S2 positive ,SAUL 3/6 LUNG: CTABL ABD: Soft, NT, ND, normoactive BS, NR MSK: Moves symmetrically, able to lift both hands against gravity. NEURO:awake, but does not follow any commands, does not use full sentences and can't understand the words that she says, has expressive and receptive aphasia CBCD WBC 5.3 K/mm3 (4.0-10.0) 10/10/17 06:00 RBC 4.43 M/mm3 (3.60-5.2) 10/10/17 06:00 Hgb 13.8 GM/dL (10.7-15.3) 10/10/17 06:00 Hct 40.6 % (32.4-45.2) 10/10/17 06:00 MCV 91.7 fl (80-96) 10/10/17 06:00 MCHC 34.0 g/dl (32.0-36.0) 10/10/17 06:00 RDW 14.9 % (11.6-15.6) 10/10/17 06:00 Plt Count 158 K/MM3 (134-434) 10/10/17 06:00 MPV 9.3 fl (7.5-11.1) 10/10/17 06:00 CMP Sodium 139 mmol/L (136-145) 10/10/17 06:00 Potassium 3.8 mmol/L (3.5-5.1) 10/10/17 06:00 Chloride 106 mmol/L (98-107) 10/10/17 06:00 Carbon Dioxide 26 mmol/L (21-32) 10/10/17 06:00 Anion Gap 7 (8-16) L 10/10/17 06:00 BUN 18 mg/dL (7-18) 10/10/17 06:00 Creatinine 1.3 mg/dL (0.55-1.02) H 10/10/17 06:00 Creat Clearance w eGFR 38.93 (>60) 10/10/17 06:00 Random Glucose 94 mg/dL (74-106) 10/10/17 06:00 Calcium 8.7 mg/dL (8.5-10.1) 10/10/17 06:00 Total Bilirubin 0.7 mg/dL (0.2-1.0) 10/10/17 06:00 AST 22 U/L (15-37) 10/10/17 06:00 ALT 15 U/L (12-78) 10/10/17 06:00 Alkaline Phosphatase 73 U/L (45-117) 10/10/17 06:00 Total Protein 7.3 g/dl (6.4-8.2) 10/10/17 06:00 Albumin 3.6 g/dl (3.4-5.0) 10/10/17 06:00 CARDIAC ENZYMES Creatine Kinase 158 IU/L (26-192) 10/07/17 20:12 Troponin I 0.02 ng/ml (0.00-0.05) 10/07/17 20:12 ASSESSMENT AND PLAN: This is an 87 year old woman with a history of HTN, dementia, stage 3 CKD, chronic back pain who presented to the ED with severe back pain, found to have BP 212/98 and developed agitation and expressive aphasia. # s/p Left temporal intracranial hemorrhage s/p Nicardipine drip with expressive aphasia, Repeat head CT shows slight increase in size of left temporal hemorrhage with edema, mass effect and midline shift. Neurology on her case and neurosurgeon on the case. CT repeated x3 with no changes from the 1st CT. # Elevated Blood pressure added Labetolol 100mg po bid keep blood pressure around 120/80. # Acute kidney injury improved ;stage 3 CKD with baseline creatinine is creatinie is 1.3 today baseline bt (1.4-1.6 in 2011) # Hypothyroidism on Synthroid continue # Alzheimer dementia on Aricept, Namenda continue # HTN continue Norvasc DVT Px: SCDs waiting for rehab placement she will need speech therapy /PT
[2017-10-12] MEDS: LEVOTHYROXINE NA 88 MCG TABLET (FP) PO SCH (06:12)
[2017-10-12 07:49] LABS: BASO % 1.3 % (0-2.0); EOS % 2.5 % (0-4.5); HEMATOCRIT 37.3 % (32.4-45.2); HEMOGLOBIN 12.9 GM/dL (10.7-15.3); LYMPH % 24.7 % (8-40); MCH 31.5 pg (25.7-33.7); MCHC 34.6 g/dl (32.0-36.0); MEAN CELL VOLUME 91.2 fl (80-96); MEAN PLT VOLUME 9.1 fl (7.5-11.1); NEUT % 65.5 % (42.8-82.8); PLATELET COUNT 169 K/MM3 (134-434); RBC 4.09 M/mm3 (3.60-5.2); RDW 14.6 % (11.6-15.6); WHITE BLOOD COUNT 5.2 K/mm3 (4.0-10.0)
[2017-10-12 08:30] LABS: ANION GAP 11 (8-16); BLOOD UREA NITROGEN 33 mg/dL (7-18); CALCIUM 9.3 mg/dL (8.5-10.1); CHLORIDE 103 mmol/L (98-107); CO2 25 mmol/L (21-32); CREATININE 1.9 mg/dL (0.55-1.02); GLUCOSE,RANDOM 88 mg/dL (74-106); POTASSIUM 3.9 mmol/L (3.5-5.1); SODIUM 139 mmol/L (136-145)
[2017-10-12] MEDS: PANTOPRAZOLE 40 MG TABLET (FP) PO SCH (10:08)
[2017-10-12] MEDS: LABETALOL HCL 100 MG TABLET (FP) PO SCH ×2 (10:08→21:50)
[2017-10-12] MEDS: MEMANTINE HCL 10 MG TABLET (FP) PO SCH ×2 (10:08→21:50)
[2017-10-12] MEDS: amLODIPine BESYLATE 5 MG TABLET (FP) PO SCH (10:08)
[2017-10-12] MEDS: DONEPEZIL HCL 10 MG TABLET (FP) PO SCH (10:08)
--- NOTE | 2017-10-12 14:14 | PN ---
Teaching Attending Note Name of Resident: Gege Owen ATTENDING PHYSICIAN STATEMENT I saw and evaluated the patient. I reviewed the resident's note and discussed the case with the resident. I agree with the resident's findings and plan as documented. SUBJECTIVE: Patient is awake and appears comfortable. OBJECTIVE: Vital Signs Period Temp Pulse Resp BP Sys/Donaldson Pulse Ox Last 24 Hr 97.6 F-99.1 F 62-73 18-18 108-126/53-63 95-96 HEART: S1S2, RRR LUNGS: Clear ABDOMEN: Soft, non-tender, non-distended, normal BS EXTREMITIES: No edema Laboratory Results - last 24 hr 10/12/17 10/12/17 07:20 07:20 WBC 5.2 RBC 4.09 Hgb 12.9 Hct 37.3 MCV 91.2 MCH 31.5 MCHC 34.6 RDW 14.6 Plt Count 169 MPV 9.1 Neutrophils % 65.5 Lymphocytes % 24.7 D Monocytes % 6.0 Eosinophils % 2.5 Basophils % 1.3 Sodium 139 Potassium 3.9 Chloride 103 Carbon Dioxide 25 Anion Gap 11 BUN 33 H Creatinine 1.9 H Random Glucose 88 Calcium 9.3 Current Medications Generic Name Dose Route Start Last Admin Trade Name Freq PRN Reason Stop Dose Admin Acetaminophen 1,000 mg 10/08/17 21:00 Ofirmev Injection - IVPB Q6H PRN PAIN LEVEL 6-10 Amlodipine Besylate 10 mg 10/11/17 06:00 10/12/17 10:08 Norvasc - PO 10 mg DAILY [facility] Administration Donepezil HCl 10 mg 10/08/17 13:45 10/12/17 10:08 Aricept - PO 10 mg DAILY [facility] Administration Labetalol HCl 100 mg 10/11/17 12:45 10/12/17 10:08 Normodyne - PO 100 mg BID [facility] Administration Levothyroxine Sodium 88 mcg 10/09/17 07:00 10/12/17 06:12 Synthroid - PO 88 mcg DAILY@0700 [facility] Administration Memantine 10 mg 10/08/17 22:00 10/12/17 10:08 Namenda - PO 10 mg BID [facility] Administration Pantoprazole Sodium 40 mg 10/09/17 14:00 10/12/17 10:08 Protonix - PO 40 mg DAILY [facility] Administration ASSESSMENT AND PLAN: This is an 87 year old woman with a history of HTN, dementia, stage 3 CKD, chronic back pain who presented to the ED with severe back pain, found to have BP 212/98 and developed agitation and expressive aphasia. 1. Left temporal intracranial hemorrhage - Has expressive and probable receptive aphasia - Continue physical therapy - Will need SNF 2. Acute kidney injury on stage 3 CKD - Creatinine increased today - will monitor 3. Hypothyroidism - Continue Synthroid 4. Alzheimer dementia - Continue Aricept, Namenda 5. HTN - Continue Norvasc, Labetalol
--- NOTE | 2017-10-12 14:16 | PN ---
Physical Exam: SUBJECTIVE: Patient seen and examined. No new c/o today. Was able to get out of bed and walk with PT. D/W Saqib in social work for discharge planning no beds available yet, will follow. CT head has shown stable ICH. OBJECTIVE: Vital Signs Period Temp Pulse Resp BP Sys/Donaldson Pulse Ox Last 24 Hr 97.6 F-99.1 F 62-73 18-18 108-126/53-63 95-96 Vital Signs Temp 98.3 F 10/12/17 10:00 Pulse 62 10/12/17 10:00 Resp 18 10/12/17 10:00 BP 121/57 10/12/17 10:00 Pulse Ox 96 10/12/17 09:00 Intake & Output 10/11/17 10/12/17 10/12/17 23:59 11:59 23:59 Intake Total 500 480 250 Balance 500 480 250 Intake: IV 10 lfa 5/4 #22 10 Oral 500 470 250 Other: Voiding Method Diaper Diaper # Unmeasured Voids Void 1 Bowel Movement Yes GENERAL: The patient is somnolent but arousable, in no acute distress. HEAD: Normal with no signs of trauma. NECK: supple. LUNGS: Breath sounds equal, clear to auscultation bilaterally, HEART: Regular rate and rhythm, S1, S2, systolic ejection murmur ABDOMEN: Soft, nontender, EXTREMITIES: 2+ pulses, warm, well-perfused, no edema. NEUROLOGICAL: Expressive aphasia, confused. Moves all limbs observed. Laboratory Results - last 24 hr 10/12/17 10/12/17 07:20 07:20 WBC 5.2 RBC 4.09 Hgb 12.9 Hct 37.3 MCV 91.2 MCH 31.5 MCHC 34.6 RDW 14.6 Plt Count 169 MPV 9.1 Neutrophils % 65.5 Lymphocytes % 24.7 D Monocytes % 6.0 Eosinophils % 2.5 Basophils % 1.3 Sodium 139 Potassium 3.9 Chloride 103 Carbon Dioxide 25 Anion Gap 11 BUN 33 H Creatinine 1.9 H Random Glucose 88 Calcium 9.3 Active Medications Generic Name Dose Route Start Last Admin Trade Name Freq PRN Reason Stop Dose Admin Acetaminophen 1,000 mg 10/08/17 21:00 Ofirmev Injection - IVPB Q6H PRN PAIN LEVEL 6-10 Amlodipine Besylate 10 mg 10/11/17 06:00 10/12/17 10:08 Norvasc - PO 10 mg DAILY JOEL Administration Donepezil HCl 10 mg 10/08/17 13:45 10/12/17 10:08 Aricept - PO 10 mg DAILY JOEL Administration Labetalol HCl 100 mg 10/11/17 12:45 10/12/17 10:08 Normodyne - PO 100 mg BID JOEL Administration Levothyroxine Sodium 88 mcg 10/09/17 07:00 10/12/17 06:12 Synthroid - PO 88 mcg DAILY@0700 JOEL Administration Memantine 10 mg 10/08/17 22:00 10/12/17 10:08 Namenda - PO 10 mg BID JOEL Administration Pantoprazole Sodium 40 mg 10/09/17 14:00 10/12/17 10:08 Protonix - PO 40 mg DAILY JOEL Administration ASSESSMENT/PLAN: 87yo F with 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 Ayoub -Goal BP 140-160 - Cont labetalol 100 BID -fall precautions, aspiration precautions, HOB elevated - plan for transfer to rehab - discussions ongoing, no bed available now - palliative care consulted - PT eval- walked 10feet both ways #Hx of back pain - unknown etiology -CT spine results as noted above -Tylenol for pain #MAU on CKD, Cr trending back up, monitor -Urine studies sent 10/08, Calculated FeNa 1.5% Likely renal - PO hydration #Alz dementia -Cont donepezil 10mg -mementine 10mg Restraints taken off #Hypothyroidism - c/w home synthroid #FEN PO hydration Monitor lytes Na controlled diet PPX SCDs Dispo: For PT, OT and speech therapy at a rehab Visit type - Emergency Visit Emergency Visit: Yes ED Registration Date: 10/07/17 Care time: The patient presented to the Emergency Department on the above date and was hospitalized for further evaluation of their emergent condition. - New Patient This patient is new to me today: Yes Date on this admission: 10/12/17 - Critical Care Critical Care patient: No - Discharge Referral [facility]erred to [facility] No
[2017-10-13] MEDS: LEVOTHYROXINE NA 88 MCG TABLET (FP) PO SCH (06:08)
[2017-10-13 06:54] LABS: BASO % 1.3 % (0-2.0); EOS % 4.7 % (0-4.5); HEMATOCRIT 38.5 % (32.4-45.2); HEMOGLOBIN 13.1 GM/dL (10.7-15.3); LYMPH % 22.6 % (8-40); MEAN CELL VOLUME 91.3 fl (80-96); MEAN PLT VOLUME 9.2 fl (7.5-11.1); MONO % 7.2 % (3.8-10.2); NEUT % 64.2 % (42.8-82.8); PLATELET COUNT 160 K/MM3 (134-434); RBC 4.22 M/mm3 (3.60-5.2); WHITE BLOOD COUNT 4.7 K/mm3 (4.0-10.0)
[2017-10-13 07:05] LABS: ALBUMIN 3.4 g/dl (3.4-5.0); ANION GAP 9 (8-16); BLOOD UREA NITROGEN 40 mg/dL (7-18); CALCIUM 8.9 mg/dL (8.5-10.1); CHLORIDE 106 mmol/L (98-107); CO2 26 mmol/L (21-32); GLUCOSE,RANDOM 89 mg/dL (74-106); MAGNESIUM 2.4 mg/dL (1.8-2.4); POTASSIUM 3.9 mmol/L (3.5-5.1); SODIUM 141 mmol/L (136-145)
[2017-10-13 07:09] LABS: ALK PHOS 69 U/L (45-117); BILIRUBIN,TOTAL 0.7 mg/dL (0.2-1.0); CREATININE 1.9 mg/dL (0.55-1.02); PHOSPHOROUS 4.2 mg/dL (2.5-4.9); SGOT/AST 15 U/L (15-37); SGPT/ALT 14 U/L (12-78); TOT PROT 7.1 g/dl (6.4-8.2)
[2017-10-13 07:10] LABS: INR 1.08 (0.82-1.09); PROTHROMBIN TIME (PATIENT) 12.2 SEC (9.7-13.0)
[2017-10-13] MEDS: LABETALOL HCL 100 MG TABLET (FP) PO SCH ×2 (09:21→22:00)
[2017-10-13] MEDS: MEMANTINE HCL 10 MG TABLET (FP) PO SCH ×2 (09:21→22:00)
[2017-10-13] MEDS: PANTOPRAZOLE 40 MG TABLET (FP) PO SCH (09:21)
[2017-10-13] MEDS: DONEPEZIL HCL 10 MG TABLET (FP) PO SCH (09:21)
[2017-10-13] MEDS: amLODIPine BESYLATE 5 MG TABLET (FP) PO SCH (09:21)
--- NOTE | 2017-10-13 11:04 | PN ---
Progress Note, SCHEDULE MANAGER - Note Progress Note: Severe Wernickes Aphasia with gains in production of function words, but with most content words unintelligible neologisms/jargon.No frustration, euphoric. Unable to respond to simple questions eg name but some social speech "doing great." Tolerating diet well. Pt will require intensive speech therapy upon discharge.
--- NOTE | 2017-10-13 16:13 | PN ---
Physical Exam: SUBJECTIVE: Patient seen and examined. Had quinonez put in yesterday for low output. No suprapubic pain, no fevers, no N/V, no new c/o. Tolerated well off possey. Daughter by her side. Discussed plans for discharge. Said she had received calls back from different rehabs. Ongoing speech eval with Leonor Siddiqi who recommends speech therapy going forward OBJECTIVE: Vital Signs Period Temp Pulse Resp BP Sys/Donaldson Pulse Ox Last 24 Hr 97.5 F-98.2 F 59-66 14-20 106-141/49-65 97-97 GENERAL: The patient is awake, in no acute distress. HEAD: Normal with no signs of trauma. NECK: supple. LUNGS: Breath sounds equal, clear to auscultation bilaterally, HEART: Regular rate and rhythm, S1, S2, systolic ejection murmur ABDOMEN: Soft, nontender, Quinonez in place with clear urine EXTREMITIES: 2+ pulses, warm, well-perfused, no edema. NEUROLOGICAL: Expressive aphasia, confused. Moves all limbs Obeys some commands Laboratory Results - last 24 hr 10/13/17 10/13/17 10/13/17 06:00 06:00 06:00 WBC 4.7 RBC 4.22 Hgb 13.1 Hct 38.5 MCV 91.3 MCH 31.0 MCHC 34.0 RDW 15.0 Plt Count 160 MPV 9.2 Neutrophils % 64.2 Lymphocytes % 22.6 Monocytes % 7.2 Eosinophils % 4.7 H D Basophils % 1.3 PT with INR 12.20 INR 1.08 PTT (Actin FS) Sodium 141 Potassium 3.9 Chloride 106 Carbon Dioxide 26 Anion Gap 9 BUN 40 H Creatinine 1.9 H Creat Clearance w eGFR 25.12 Random Glucose 89 Calcium 8.9 Phosphorus 4.2 Magnesium 2.4 Total Bilirubin 0.7 AST 15 ALT 14 Alkaline Phosphatase 69 Total Protein 7.1 Albumin 3.4 10/13/17 06:00 WBC RBC Hgb Hct MCV MCH MCHC RDW Plt Count MPV Neutrophils % Lymphocytes % Monocytes % Eosinophils % Basophils % PT with INR INR PTT (Actin FS) 26.3 L Sodium Potassium Chloride Carbon Dioxide Anion Gap BUN Creatinine Creat Clearance w eGFR Random Glucose Calcium Phosphorus Magnesium Total Bilirubin AST ALT Alkaline Phosphatase Total Protein Albumin Active Medications Generic Name Dose Route Start Last Admin Trade Name Freq PRN Reason Stop Dose Admin Acetaminophen 1,000 mg 05/03/18 21:00 Ofirmev Injection - IVPB Q6H PRN PAIN LEVEL 6-10 Amlodipine Besylate 10 mg 10/11/17 06:00 10/13/17 09:21 Norvasc - PO 10 mg DAILY JOEL Administration Donepezil HCl 10 mg 10/08/17 13:45 10/13/17 09:21 Aricept - PO 10 mg DAILY JOEL Administration Labetalol HCl 100 mg 10/11/17 12:45 10/13/17 09:21 Normodyne - PO 100 mg BID JOEL Administration Levothyroxine Sodium 88 mcg 10/09/17 07:00 10/13/17 06:08 Synthroid - PO 88 mcg DAILY@0700 JOEL Administration Memantine 10 mg 10/08/17 22:00 10/13/17 09:21 Namenda - PO 10 mg BID JOEL Administration Pantoprazole Sodium 40 mg 10/09/17 14:00 10/13/17 09:21 Protonix - PO 40 mg DAILY JOEL Administration ASSESSMENT/PLAN: 87yo F with 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 Ayoub -Goal BP 140-160 - Cont labetalol 100 BID -fall precautions, aspiration precautions, HOB elevated - plan for transfer to rehab - 2 facilities accepted, but daughter wants to wait to hear from [facility] tomorrow -Declined at [facility] will encourage to accept one of the other 2 - palliative care consulted - PT eval- walked 10feet both ways D/C quinonez Bladder scans Q6 Inform MD if greater than 300mls #Hx of back pain - unknown etiology -CT spine results as noted above -Tylenol for pain #MAU on CKD, Cr trending back up, monitor -Urine studies sent 10/08, Calculated FeNa 1.5% Likely renal - PO hydration #Alz dementia -Cont donepezil 10mg -mementine 10mg Restraints taken off #Hypothyroidism - c/w home synthroid #FEN PO hydration Monitor lytes Na controlled diet PPX SCDs Dispo: For PT, OT and speech therapy at a rehab For discharge tomorrow Visit type - Emergency Visit Emergency Visit: Yes ED Registration Date: 10/07/17 Care time: The patient presented to the Emergency Department on the above date and was hospitalized for further evaluation of their emergent condition. - New Patient This patient is new to me today: No - Critical Care Critical Care patient: No - Discharge Referral Referred to [facility] No
--- NOTE | 2017-10-13 19:54 | PN ---
Teaching Attending Note Name of Resident: Gege Marquis Hilaryamy ATTENDING PHYSICIAN STATEMENT I saw and evaluated the patient. I reviewed the resident's note and discussed the case with the resident. I agree with the resident's findings and plan as documented with exceptions below. SUBJECTIVE: patient seen and examined, garbled speech, unable to assess full ROS. OBJECTIVE: Vital Signs Period Temp Pulse Resp BP Sys/Donaldson Pulse Ox Last 24 Hr 97.1 F-98.2 F 59-64 14-20 106-141/49-62 97-97 Intake & Output 10/10/17 10/11/17 10/12/17 10/13/17 23:59 23:59 23:59 23:59 Intake Total 691 282 6343 600 Output Total 400 651 450 Balance 300 700 729 150 General: sitting in bed in no acute distress Abdomen: soft, no suprapubic or CVA tenderness Neuro: moving all extremities, incomprehensible speech, follows few commands, no pronator drift Home Medication List Medication Instructions Recorded Confirmed Type Donepezil HCl 10 mg PO AM 10/08/17 10/08/17 History Memantine HCl [Namenda Xr] 21 mg PO DAILY 10/08/17 10/08/17 History Active Medications Generic Name Dose Route Start Last Admin Trade Name Freq PRN Reason Stop Dose Admin Acetaminophen 1,000 mg 10/08/17 21:00 Ofirmev Injection - IVPB Q6H PRN PAIN LEVEL 6-10 Amlodipine Besylate 10 mg 10/11/17 06:00 10/13/17 09:21 Norvasc - PO 10 mg DAILY JOEL Administration Donepezil HCl 10 mg 10/08/17 13:45 10/13/17 09:21 Aricept - PO 10 mg DAILY JOEL Administration Labetalol HCl 100 mg 10/11/17 12:45 10/13/17 09:21 Normodyne - PO 100 mg BID JOEL Administration Levothyroxine Sodium 88 mcg 10/09/17 07:00 10/13/17 06:08 Synthroid - PO 88 mcg DAILY@0700 JOEL Administration Memantine 10 mg 10/08/17 22:00 10/13/17 09:21 Namenda - PO 10 mg BID JOEL Administration Pantoprazole Sodium 40 mg 10/09/17 14:00 10/13/17 09:21 Protonix - PO 40 mg DAILY JOEL Administration Laboratory Results - last 24 hr 10/13/17 10/13/17 10/13/17 06:00 06:00 06:00 WBC 4.7 RBC 4.22 Hgb 13.1 Hct 38.5 MCV 91.3 MCH 31.0 MCHC 34.0 RDW 15.0 Plt Count 160 MPV 9.2 Neutrophils % 64.2 Lymphocytes % 22.6 Monocytes % 7.2 Eosinophils % 4.7 H D Basophils % 1.3 PT with INR 12.20 INR 1.08 PTT (Actin FS) Sodium 141 Potassium 3.9 Chloride 106 Carbon Dioxide 26 Anion Gap 9 BUN 40 H Creatinine 1.9 H Creat Clearance w eGFR 25.12 Random Glucose 89 Calcium 8.9 Phosphorus 4.2 Magnesium 2.4 Total Bilirubin 0.7 AST 15 ALT 14 Alkaline Phosphatase 69 Total Protein 7.1 Albumin 3.4 10/13/17 06:00 WBC RBC Hgb Hct MCV MCH MCHC RDW Plt Count MPV Neutrophils % Lymphocytes % Monocytes % Eosinophils % Basophils % PT with INR INR PTT (Actin FS) 26.3 L Sodium Potassium Chloride Carbon Dioxide Anion Gap BUN Creatinine Creat Clearance w eGFR Random Glucose Calcium Phosphorus Magnesium Total Bilirubin AST ALT Alkaline Phosphatase Total Protein Albumin ASSESSMENT AND PLAN: 87 yof with a history of HTN, dementia, stage 3 CKD, chronic back pain who presented to the ED with severe back pain, found to have BP 212/98 and developed agitation and expressive aphasia. - Left temporal intracranial hemorrhage -MAU on CKD stageIII, baseline cr 1.7 -acute on chronic back pain with lumbar disc disease -Hypothyroidism -Alzheimer dementia -HTN Plan: PT, SNF, aggressive Speech therapy. BP control. Continue labetalol Synthroid, thyroid panel in 2-3 weeks. Cr plateaued, around baseline, d/c quinonez, voiding trial. COntinue aricept/namenda Dispo planning to SNF when bed available. Plan discussed with daughter at bedside in detail, all questions answered.
[2017-10-14] MEDS: LEVOTHYROXINE NA 88 MCG TABLET (FP) PO SCH (05:59)
[2017-10-14 07:05] VITALS: PULSE 64
--- NOTE | 2017-10-14 08:02 | PN ---
Teaching Attending Note Name of Resident: Gege Owen ATTENDING PHYSICIAN STATEMENT I saw and evaluated the patient. I reviewed the resident's note and discussed the case with the resident. I agree with the resident's findings and plan as documented with exceptions below. SUBJECTIVE: Patient seen and examined. incomprehensible speech, unable to assess for ROS, pleasant. OBJECTIVE: Vital Signs Period Temp Pulse Resp BP Sys/Donaldson Pulse Ox Last 24 Hr 97.1 F-98.2 F 57-64 14-20 112-154/53-71 97-97 Intake & Output 10/11/17 10/12/17 10/13/17 10/14/17 23:59 23:59 23:59 23:59 Intake Total 700 1380 720 140 Output Total 651 700 Balance 700 729 20 140 General:sitting in bed, no acute distress pleasant Neuro: nonsensical speech, moves all extremities freely, unchanged exam Home Medication List Medication Instructions Recorded Confirmed Type Donepezil HCl 10 mg PO AM 10/08/17 10/08/17 History Memantine HCl [Namenda Xr] 21 mg PO DAILY 10/08/17 10/08/17 History Active Medications Generic Name Dose Route Start Last Admin Trade Name Freq PRN Reason Stop Dose Admin Acetaminophen 1,000 mg 10/08/17 21:00 Ofirmev Injection - IVPB Q6H PRN PAIN LEVEL 6-10 Amlodipine Besylate 10 mg 10/11/17 06:00 10/13/17 09:21 Norvasc - PO 10 mg DAILY JOEL Administration Donepezil HCl 10 mg 10/08/17 13:45 10/13/17 09:21 Aricept - PO 10 mg DAILY JOEL Administration Labetalol HCl 100 mg 10/11/17 12:45 10/13/17 22:00 Normodyne - PO 100 mg BID JOEL Administration Levothyroxine Sodium 88 mcg 10/09/17 07:00 10/14/17 05:59 Synthroid - PO 88 mcg DAILY@0700 JOEL Administration Memantine 10 mg 10/08/17 22:00 10/13/17 22:00 Namenda - PO 10 mg BID JOEL Administration Pantoprazole Sodium 40 mg 10/09/17 14:00 10/13/17 09:21 Protonix - PO 40 mg DAILY JOEL Administration Laboratory Results - last 24 hr 10/14/17 10/14/17 10/14/17 06:35 06:35 06:35 WBC 4.5 RBC 4.07 Hgb 12.5 Hct 37.3 MCV 91.7 MCH 30.8 MCHC 33.6 RDW 15.1 Plt Count 173 MPV 10.0 Neutrophils % 59.8 Lymphocytes % 24.0 Monocytes % 7.3 Eosinophils % 6.5 H Basophils % 2.4 H PT with INR 11.80 INR 1.04 PTT (Actin FS) 21.8 L Sodium 141 Potassium 3.9 Chloride 109 H Carbon Dioxide 21 Anion Gap 11 BUN 35 H Creatinine 1.5 H Creat Clearance w eGFR 33.00 Random Glucose 96 Calcium 8.9 Phosphorus 3.2 Magnesium 2.3 Total Bilirubin 0.6 AST 19 ALT 14 Alkaline Phosphatase 66 Total Protein 7.0 Albumin 3.4 ASSESSMENT AND PLAN: 87 yof with a history of HTN, dementia, stage 3 CKD, chronic back pain who presented to the ED with severe back pain, found to have BP 212/98 and developed agitation and expressive aphasia. - Left temporal intracranial hemorrhage -MAU on CKD stageIII, baseline cr 1.7 -acute on chronic back pain with lumbar disc disease -Hypothyroidism -Alzheimer dementia -HTN Plan: PT, SNF, aggressive Speech therapy. BP control. Continue labetalol/amlodipine Synthroid, thyroid panel in 2-3 weeks. Renal function stable, voiding freely. Encourage PT and ambulation. Continue aricept/namenda Dispo to SNF today, bed available. .
[2017-10-14 09:05] LABS: INR 1.04 (0.82-1.09); PROTHROMBIN TIME (PATIENT) 11.8 SEC (9.7-13.0)
[2017-10-14 09:09] LABS: ACTIVATED PTT 21.8 SECONDS (26.9-34.4)
[2017-10-14 09:10] LABS: BASO % 2.4 % (0-2.0); EOS % 6.5 % (0-4.5); HEMATOCRIT 37.3 % (32.4-45.2); HEMOGLOBIN 12.5 GM/dL (10.7-15.3); MCH 30.8 pg (25.7-33.7); MCHC 33.6 g/dl (32.0-36.0); MEAN CELL VOLUME 91.7 fl (80-96); MONO % 7.3 % (3.8-10.2); NEUT % 59.8 % (42.8-82.8); PLATELET COUNT 173 K/MM3 (134-434); RBC 4.07 M/mm3 (3.60-5.2); RDW 15.1 % (11.6-15.6); WHITE BLOOD COUNT 4.5 K/mm3 (4.0-10.0)
[2017-10-14 09:35] VITALS: BP 123/56; TEMP 98.2
[2017-10-14] MEDS: DONEPEZIL HCL 10 MG TABLET (FP) PO SCH (09:42)
[2017-10-14] MEDS: LABETALOL HCL 100 MG TABLET (FP) PO SCH (09:42)
[2017-10-14] MEDS: MEMANTINE HCL 10 MG TABLET (FP) PO SCH (09:42)
[2017-10-14] MEDS: PANTOPRAZOLE 40 MG TABLET (FP) PO SCH (09:42)
[2017-10-14] MEDS: amLODIPine BESYLATE 5 MG TABLET (FP) PO SCH (09:42)
[2017-10-14 10:43] LABS: CHLORIDE 109 mmol/L (98-107); POTASSIUM 3.9 mmol/L (3.5-5.1); SODIUM 141 mmol/L (136-145)
[2017-10-14 11:17] LABS: ALBUMIN 3.4 g/dl (3.4-5.0); ALK PHOS 66 U/L (45-117); ANION GAP 11 (8-16); BILIRUBIN,TOTAL 0.6 mg/dL (0.2-1.0); BLOOD UREA NITROGEN 35 mg/dL (7-18); CALCIUM 8.9 mg/dL (8.5-10.1); CO2 21 mmol/L (21-32); CREATININE 1.5 mg/dL (0.55-1.02); GLUCOSE,RANDOM 96 mg/dL (74-106); MAGNESIUM 2.3 mg/dL (1.8-2.4); PHOSPHOROUS 3.2 mg/dL (2.5-4.9); SGOT/AST 19 U/L (15-37); SGPT/ALT 14 U/L (12-78)
--- NOTE | 2017-10-14 11:33 | DS ---
Physical Exam: SUBJECTIVE: Patient seen and examined. Still having confused speech and unable to follow commands. Has voided fine s/p quinonez removal yesterday. Bladder scan yielded about 100 residual. No fevers noted overnight. OBJECTIVE: Vital Signs Period Temp Pulse Resp BP Sys/Donaldson Pulse Ox Last 24 Hr 97.1 F-98.2 F 57-64 14-20 112-154/53-71 97-97 Vital Signs Temp 98.2 F 10/14/17 09:32 Pulse 64 10/14/17 09:32 Resp 18 10/14/17 09:32 BP 123/56 10/14/17 09:32 Pulse Ox 97 10/14/17 08:44 Intake & Output 10/13/17 10/14/17 10/14/17 23:59 11:59 23:59 Intake Total 370 440 Output Total 550 Balance -180 440 Intake: Oral 370 440 Output: Urine 550 Quinonez 300 Void 250 Other: Voiding Method Diaper Toilet # Unmeasured Voids Void 2 Bowel Movement No No Intake & Output 10/11/17 10/12/17 10/13/17 10/14/17 23:59 23:59 23:59 23:59 Intake Total 700 1380 720 440 Output Total 651 700 Balance 700 729 20 440 PHYSICAL EXAM GENERAL: The patient is awake, alert, attempting verbal communication that is incomprehensible or incoherent, in no acute distress. HEAD: Normal with no signs of trauma. ENT: moist mucous membranes. NECK: supple. LUNGS: Breath sounds equal, clear to auscultation bilaterally, no wheezes, no crackles, no accessory muscle use. HEART: Regular rate and rhythm, S1, S2 ABDOMEN: Soft, nontender, nondistended, normoactive bowel sounds, no guarding EXTREMITIES: 2+ pulses, warm, well-perfused, no edema. NEUROLOGICAL: Awake, alert, attempting verbal communication that is incomprehensible LABS Laboratory Results - last 24 hr 10/14/17 10/14/17 10/14/17 06:35 06:35 06:35 WBC 4.5 RBC 4.07 Hgb 12.5 Hct 37.3 MCV 91.7 MCH 30.8 MCHC 33.6 RDW 15.1 Plt Count 173 MPV 10.0 Neutrophils % 59.8 Lymphocytes % 24.0 Monocytes % 7.3 Eosinophils % 6.5 H Basophils % 2.4 H PT with INR 11.80 INR 1.04 PTT (Actin FS) 21.8 L Sodium 141 Potassium 3.9 Chloride 109 H Carbon Dioxide 21 Anion Gap 11 BUN 35 H Creatinine 1.5 H Creat Clearance w eGFR 33.00 Random Glucose 96 Calcium 8.9 Phosphorus 3.2 Magnesium 2.3 Total Bilirubin 0.6 AST 19 ALT 14 Alkaline Phosphatase 66 Total Protein 7.0 Albumin 3.4 HOSPITAL COURSE: Date of Admission:10/07/17 Date of Discharge: 10/14/17 Prehospital Course: 87yo F with a PMHx of Dementia and chronic back pain who was originally brought in by EMS due to severe back pain. While being transferred from the stretcher to the ER bed, the patient started screaming in excruciating pain, became tachy and very hypertensive (212/98), and suddenly sustained expressive aphasia. She started speaking nonsensically, appeared confused, and had decreased movement to her R upper and lower extremities. [facility] was called and Head CT showed 4x2cm L temporal hemorrhage w/ mild edema. She was started on Cardene drip. Neurosurgery Dr Scott was called, who stated that the location of the bleed is risky, makes it nonsurgical ulises. HCP signed DNR/DNI in ED. Hospital course: EXAM#: TYPE/EXAM: RESULT: [id number] CT/HEAD CT WITHOUT CONTRAST FOLLOW-UP TEMPORAL HEMATOMA. CT SCAN OF THE BRAIN C-. Findings. Serial axial images of the brain were obtained from foramen magnum to the cranial vertex without intravenous contrast. The study was supplemented with computer-generated coronal and sagittal reconstruction images. The present study was compared with CT of the brain October 08, 2017. Acute left temporal lobe hematoma with peripheral edema measuring chapo. 4.6 cm x 2.6 cm x 6.8 cm. CSF spaces unchanged from prior examination. There is no evidence of hydrocephalus. No evidence of herniation. Hematoma exhibits mass effect on the posterior aspect of the left lateral ventricle. Examination of the bone windows show no fracture. The visualized paranasal sinuses and mastoid air cells are clear. Symmetrical ocular globes. Unremarkable retro-orbital soft tissues. Impression. Acute left temporal lobe hematoma with peripheral edema measuring chapo. 4.6 cm x 2.6 cm x 6.8 cm. No evidence of hydrocephalus, herniation. While hospitalized, she resumed symmetrical movement of her upper and lower extremities. Her expressive and receptive aphasia has been improving gradually, but she is sometimes incomprehensible and is unable to follow commands. She was also noted to have reduced kidney function with a rise in creatinine to 1.9. Her kidney function improved to 1.4 today at discharge. She was discharged to a rehabilitative facility to receive speech, occupational and physical therapy. Minutes to complete discharge: 45 Discharge Summary Reason For Visit: INTRACEREBRAL HEMORRHAGE Current Active Problems Altered mental status (Acute) Aphasia (Acute) HTN (hypertension) (Acute) Intracerebral hemorrhage (Acute) Low back pain (Acute) Condition: Stable - Instructions Diet, Activity, Other Instructions: You were seen here for difficulty expressing yourself You were found to have had a bleeding in the brain that was not worsening You were being managed for the bleed without surgery because of the location of the bleed Your goal blood pressure is for systolic 120-140mmHg You have been placed on oral blood pressure medications which include: Labetalol 100mg by mouth twice a day Norvasc 10mg by mouth daily Please continue with your home medications Aricept 10mg daily Namenda 10mg twice a day Pantoprazole 40mg daily Synthroid 88mcg daily You are being discharged to a rehabilitation facility to receive speech therapy , occupational therapy and physical therapy Please avoid aspirin, NSAIDS like motrin or any blood thinners until your doctor says it is ok to resume Follow up: BMP (basic Metabolic panel) in 1 week. Thyroid Panel (TSH, Free T4 and total T3) in 2-3 weeks with your doctor. Call 911 or come to ED if any new changes in mental status, inability to urinate or new concerns. Referrals: ON STAFF,NOT [Non Staff, Medical] - 1 Week Disposition: PENITENTIARY FACILITY - Home Medications Comprehensive Discharge Medication List: Ambulatory Orders Biotin 1 mg PO DAILY #0 tablet 05/15/12 Cholecalciferol (Vitamin D3) [Vitamin D3] 400 unit PO DAILY #0 capsule 05/15/12 Levothyroxine [Synthroid -] 88 mcg PO DAILY@0700 #0 tablet 05/15/12 Multivitamin [Multivitamins] 1 each PO DAILY #0 capsule 05/15/12 Ranitidine [Zantac -] 150 mg PO HS #0 tablet 05/15/12 Donepezil HCl 10 mg PO AM 10/08/17 Memantine HCl [Namenda Xr] 21 mg PO DAILY 10/08/17 Amlodipine Besylate [Norvasc -] 10 mg PO DAILY tablet 10/14/17 Labetalol HCl [Normodyne -] 100 mg PO BID tablet 10/14/17 This patient is new to me today: No Emergency Visit: Yes ED Registration Date: 10/07/17 Care time: The patient presented to the Emergency Department on the above date and was hospitalized for further evaluation of their emergent condition. Critical Care patient: No - Discharge Referral Referred to [facility] No
--- NOTE | 2017-10-14 12:07 | PN ---
Progress Note, [employer] TECHNICIAN - Note Progress Note: Comprehending some simple aud commands paired with gesture. More intelligible social speech. Selected Entries 10/14/17 10/14/17 10/14/17 02:00 07:03 09:32 Breakfast 50% Diet Tolerated Well Temperature 97.8 F 97.3 F L 98.2 F Pending d/c to [facility].
== END 2017-10-14 13:17 | DRG 64 ==
LOC: JER 19:33 → JICU 22:44 → J4S 10-09 16:40
PROVIDERS: ADMIT Internal Medicine; ATTEND Hospitalist
DX: I61.9 Nontraumatic intracerebral hemorrhage, unspecified (principal); G93.6 Cerebral edema; I69.251 Hemiplegia and hemiparesis following other nontraumatic intracranial hemorrhage affecting right dominant side; N17.9 Acute kidney failure, unspecified; I16.1 Hypertensive emergency; R29.706 NIHSS score 6; R00.0 Tachycardia, unspecified; E03.9 Hypothyroidism, unspecified; I69.320 Aphasia following cerebral infarction; G30.9 Alzheimer's disease, unspecified; F02.80 Dementia in other diseases classified elsewhere, unspecified severity, without behavioral disturbance, psychotic disturbance, mood disturbance, and anxiety; R41.82 Altered mental status, unspecified; I12.9 Hypertensive chronic kidney disease with stage 1 through stage 4 chronic kidney disease, or unspecified chronic kidney disease; N18.3 Chronic kidney disease, stage 3 (moderate); M51.36 Other intervertebral disc degeneration, lumbar region; Z66 Do not resuscitate
CPT/HCPCS: 36415; 70450-TC; 71045-TC-FY; 72131-TC; 80048; 80053; 81003; 82436; 82465; 82550; 82553; 82570; 83690; 83718; 83721; 83735; 84100; 84133; 84300; 84478; 84484; 85025; 85027; 85610; 85730; 86850; 86900; 86901; 93005; 93010; 97116-GP; 97162-GP; 99282-25; J0131; J7030